=== PATIENT | female | born 1955 | race Caucasian/White ===

== ENCOUNTER → 2016-08-19 | Outpatient (CLI) | payer OTHER ==
[~2016-08-19] VITALS: Ht 170.2 cm; Wt 81.7 kg
[~2016-08-19] MED LIST: ADVAIR 250-501 EACH IH; ADVAIR 500-501 EACH PO; ADVIL MULTI-SY1 EAC1 PO; ALBUTEROL2.5 MG/0.5 INH; ALBUTEROL2.5 MG/0.5 PO; AUGMENTIN 875875 M1 PO; AUGMENTIN 875875 MG PO; BENZONATATE100 MG PO; CALCIUM 600 +1 EAC1 PO; CALTRATE 600 +1 EAC1 PO; CEFDINIR300 MG PO; CEFTIN 250 MG250 MG PO; CLARITIN10 MG PO; DIFLUCAN200 MG PO; ESTRACE CREAM TOP; FLONASE 0.05%50 MCG NASAL; FLONASE NS; HYDROCODON-ACE1 EAC5 PO; HYDROCODON-ACE1 EAC7 PO; IBUPROFEN 600600 M1 PO; IMITREX 25 MG T25 M1 PO; IMITREX OR; LEVAQUIN 500 M500 M2 PO; LIDOCAIN TOP; LOPERAMIDE 2 MG2 M1 PO; LORTAB OR; LYRICA 50 MG50 MG PO; LYRICA PO; LYRICA100 MG PO; MEDROL DOSPAK21 TAB PO; MELOXICAM7.5 MG PO; MUCINEX TA600 MG/TA2 PO; MUCINEX600 MG PO; NORCO 10-325 T1 EACH PO; NORTRIPTYLINE H10 M1 PO; NORTRIPTYLINE H25 M3 OR; NORTRIPTYLINE H25 M3 PO; NORTRIPTYLINE H50 M3 PO; PERCOCET 5-3251 EACH PO; PREDNISONE 10 M10 M1 PO; PREDNISONE 10 M10 MG PO; PREDNISONE 20 M20 M1 PO; PREDNISONE 20 M20 MG PO; PREDNISONE 5 MG5 M1 PO; SINGULAIR 10 MG10 M1 PO; SPIRIVA INH; SPIRIVA PO; VENTOLIN HFA 1818 GM PO; VENTOLIN HFA INH8 GM PO
--- NOTE | ~2016-08-19 | HPC ---
[facility] [place] [address] PAIN MANAGEMENT CONSULTATION Name: BEATA PELLETIER Room #: REG KYM Peter.#: [id number] Admission: 08/19/16 Attend Phys: Kvng Badillo MD Discharge: Date of : 51 Report #: [id number] THIS REPORT FOR: //name// CC: Chuy Badillo DATE OF SERVICE: 08/19/2016 Followup visit for chronic pudendal neuralgia. The patient is here today for renewal of her pain medication. 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 Dr. Santana suggested that she see someone to discuss her generalized arthritis. She complains of her chronic pain in the peroneal area. She has neuralgia that we have treated for years successfully with small doses of hydrocodone in combination with Lyrica or gabapentin and ibuprofen. We reviewed all three of these medications today. We discussed the side effects of them all and we have also spent some time discussing the opioid crisis in the [place]. I have talked about the importance of safeguarding all medications and using medications as prescribed. In the many years that I have provided medication for the patient successfully helping manage her pain, there have been no concerns regarding her use of opioid medication. I noted that her opioid agreement was signed in our clinic on 11/25/2005; it has now been over 10 years. She scores her pain as a 4/10, burning with soreness and achiness. It is exacerbated by walking, riding a bike and any sort of stimulation. The patient reports 95% improvement in her pain with her medication management and very manageable side effects. PHYSICAL EXAMINATION: VITAL SIGNS: Blood pressure 124/74, heart rate 74. BMI 28.2. EXTREMITIES: Moves from sitting to standing position, ambulates without difficulty. I did not examine her more thoroughly today. IMPRESSION: 1. Chronic pudendal neuralgia/peroneal neuralgia. 2. Management of high-risk medication. 3. Bilateral hip pain and knee pain. Rheumatoid consult suggested with Dr. Kwaku Da Silva, Dr. Antonietta Neil or . I did contact Dr. Kwaku Da Silva and I provided the patient with his number in the [place] office. 4. 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 PLAN: 1. Renewal of all medications through our clinic under terms of our agreement. [address] [address] PAIN MANAGEMENT CONSULTATION Name: BEATA PELLETIER Room #: REG CLI [facility]#: [id number] Admission: 08/19/16 Attend Phys: Kvng Badillo MD Discharge: Date of : 51 Report #: [id number] 2. Discussion regarding CDC guidelines. 3. Follow up in 3 months. By: 1249 1602 Kvng Badillo MD /nt
[2016-08-19 14:42] VITALS: BP 124/74
== END | disposition home or self-care (01) ==
LOC: PAIN 06-10 07:12
DX: G58.8 Other specified mononeuropathies (principal); G89.29 Other chronic pain; M25.561 Pain in right knee; M25.562 Pain in left knee; M25.551 Pain in right hip; M25.552 Pain in left hip; Z85.44 Personal history of malignant neoplasm of other female genital organs; Z87.891 Personal history of nicotine dependence

== ENCOUNTER → 2016-09-30 | Outpatient (CLI) | payer OTHER | LOC: ULTRA 16:12 | DX: I82.402 Acute embolism and thrombosis of unspecified deep veins of left lower extremity (principal); M79.89 Other specified soft tissue disorders; R60.9 Edema, unspecified ==

== ENCOUNTER → 2017-03-07 | Outpatient (CLI) | payer OTHER | LOC: RAD 12:51 | DX: M79.605 Pain in left leg (principal); R05 Cough ==

== ENCOUNTER 2017-03-16 14:13 | Observation (INO) | payer OTHER ==
[~2017-03-16] VITALS: Ht 170.2 cm; Wt 86.2 kg
--- NOTE | ~2017-03-16 | HC ---
[facility] [place] [address] CONSULTATION Name: BEATA PELLETIER Room #: 364-P DALIA Hernandez#: [id number] Admission: 03/16/17 Attend Phys: Jed Blanton DO Discharge: 03/17/17 Date of : 51 Report #: [id number] THIS REPORT FOR: //name// CC: Jed Connelly DATE OF SERVICE: 03/17/2017 REASON FOR CONSULTATION: Asthma. IMPRESSION: 1. History of asthma. 2. Peripheral edema. 3. Chest tightness. 4. Hypertension. 5. History of pulmonary embolism in 1995. 6. Chronic pain with stimulator. 7. History of Bartholin gland cancer with radiation. 8. Snoring. PLAN: 1. After review, I believe this could be secondary to diastolic dysfunction, question if there is a component of pulmonary hypertension at some point may need right heart catheterization, may need further evaluation regarding venous insufficiency, further evaluation regarding hypertension. 2. Would consider a sleep study to follow up with Dr. Mendez in office. 3. Possible evaluation regarding adrenal insufficiency. HISTORY OF PRESENT ILLNESS: A 61-year-old female has been having trouble with peripheral edema since the end of December and some progressive shortness breath, also earlier this month had pneumonia, which was treated and chest x-ray has improved. CT shows patchy areas of subpleural linear infiltrate, no consolidating pneumonia. We reviewed this with her. She had a recent left heart catheterization. She complained of chest pressure. No definite chest pain. Positive orthopnea. PAST MEDICAL HISTORY: ALLERGIES: TO REGLAN, COMPAZINE, PHENERGAN, GENTAMICIN, NAPROXEN. HOME MEDICATIONS: Included loperamide, spironolactone, Qvar, Levaquin, Lasix, loratadine, Symbicort, Singulair, albuterol, Spiriva, Motrin. FAMILY HISTORY: Noncontributory; however, brother also has asthma treated with Xolair. PAST SURGICAL HISTORY: Include meniscus repair and pain pump. Modified [facility] [address] [place] [address] CONSULTATION Name: BEATA PELLEITER Room #: 364-P [facility] Brandon Hernandez#: [id number] Admission: 03/16/17 Attend Phys: Jed Blanton DO Discharge: 03/17/17 Date of : 51 Report #: [id number] vulvectomy and lymph node dissection, neuropathy in volar area, endometrial ablation. SOCIAL HISTORY: Negative tobacco. Occasional ETOH. Negative current tobacco. REVIEW OF SYSTEMS: Include pulmonary emboli, pneumonia, migraine, esophageal dilation, cough, shortness of breath. No hemoptysis. Positive asthma. Positive dyspnea on exertion, positive peripheral edema. PHYSICAL EXAMINATION: VITAL SIGNS: Temperature 98.9, pulse 82, respirations ____, BP 135/73. EYES: Negative icterus. NECK: Negative JVD. LUNGS: Clear. HEART: Regular. ABDOMEN: Bowel sounds present. EXTREMITIES: Showed positive edema. By: [id number] Cassandra Fuller MD /nt
--- NOTE | ~2017-03-16 | 2DMMODE ---
[facility] [address] [place] [address] 2 D/M-MODE ECHOCARDIOGRAM Name: BEATA PELLETIER Room #: 364-P ADM IN M.R.#: [id number] Admission: 03/16/17 Attend Phys: Jed Blanton, Discharge: Date of : 51 Date of Service: 03/17/17 1130 Report #: [id number] THIS REPORT FOR: //name// APPROVED REPORT Study performed: 03/17/2017 10:15:06 EXAM: Comprehensive 2D, Doppler, and color-flow Echocardiogram Patient Location: Echo lab Room #: 364 Status: routine BSA: 1.98 HR: 73 bpm BP: 140/73 mmHg Rhythm: NSR Other Information Study Quality: Good Indications Dyspnea Chest Pain 2D Dimensions RVDd: 32.59 mm LVEF(%): 72.82 (>50%) IVSd: 11.28 (7-11mm) LVOT Diam: 21.22 (18-24mm) LVDd: 42.40 mm PWd: 11.36 (7-11mm) Ascending Ao: 31.61 (22-36mm) LVDs: 24.78 (25-40mm) Aortic Root: 35.14 mm Saez's LVEF: 72.82 % Volumes Left Atrial Volume (Systole) Single Plane 4CH: 33.86 mL Single Plane 2CH: 41.77 mL LA ESV Index: 22.00 mL/m2 Aortic Valve AoV Peak Kentrell.: 1.62 m/s AO Peak Gr.: 10.44 mmHg LVOT Max P.91 mmHg LVOT Max V: 1.49 m/s JACOBO Vmax: 3.27 cm2 AI Vmax: 4.22 m/s AI Goodhue: 3.28 m/s2 AI PHT: 373.42 ms [facility] [place] [address] 2 D/M-MODE ECHOCARDIOGRAM Name: BEATA PELLETIER HUNG Room #: 364-P [facility] IN M.R.#: [id number] Admission: 03/16/17 Attend Phys: Jed Blanton, Discharge: Date of : 51 Date of Service: 03/17/17 1130 Report #: [id number] Mitral Valve E/A Ratio: 1.2 MV Decel. Time: 212.44 ms MV E Max Kentrell.: 0.99 m/s MV A Kentrell.: 0.85 m/s MV PHT: 61.61 ms Pulmonary Valve PV Peak Kentrell.: 0.88 m/s PV Peak Gr.: 3.09 mmHg Pulmonary Vein P Vein S: 0.72 m/s P Vein D: 0.40 m/s P Vein S/D Ratio: 1.80 Tricuspid Valve TR Peak Kentrell.: 2.37 m/s RAP Estimate: 5.00 mmHg TR Peak Gr.: 22.47 mmHg PA Pressure: 27.00 mmHg Left Ventricle The left ventricle is normal size. There is normal LV segmental wall motion. There is normal left ventricular wall thickness. Left ventricular systolic function is normal. LVEF is 60-65%. Moderate diastolic dysfunction is present (pseudonormal filling). Right Ventricle The right ventricle is normal size. The right ventricular systolic function is normal. Atria The left atrium size is normal. The right atrium size is normal. Aortic Valve The aortic valve is mildly sclerotic Mild aortic regurgitation. There is no aortic valvular stenosis. Mitral Valve The mitral valve is normal in structure. Trace mitral regurgitation. Tricuspid Valve The tricuspid valve is normal in structure. Trace tricuspid regurgitation. Estimated PAP is 27mmHg. [place] [address] 2 D/M-MODE ECHOCARDIOGRAM Name: BEATA PELLETIER Room #: 364-P [facility] IN ..#: [id number] Admission: 03/16/17 Attend Phys: Jed Blanton, Discharge: Date of : 51 Date of Service: 03/17/17 1130 Report #: [id number] Pulmonic Valve The pulmonary valve is normal in structure. Trace pulmonic regurgitation. Great Vessels The aortic root is normal in size. The ascending aorta is normal in size. IVC is normal in size and collapses >50% with inspiration. Pericardium There is no pericardial effusion. <Conclusion> Left ventricular systolic function is normal. There is normal LV segmental wall motion. LVEF 60-65%. The aortic valve is mildly sclerotic. Mild aortic regurgitation, no stenosis. The mitral valve is normal in structure. Trace mitral regurgitation. Pulmonary artery pressure of 27mm Hg There is no pericardial effusion. <ELECTRONICALLY SIGNED> By: Mario Pennington MD, FACC 03/17/17 1130 1130 113 Mario Pennington MD, FACC /INF
--- NOTE | ~2017-03-16 | EKG ---
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 : 1955 Requested By: Chuck Grier Order Number: [id number] MD: Mario Pennington Measurements Intervals [place] Rate: 83 P: -27 IN: 172 QRS: -8 QRSD: 79 T: 89 QT: 338 QTc: 398 Interpretive Statements Sinus rhythm Atrial premature complex Left ventricular hypertrophy Compared to ECG 06/24/2015 18:32:36 Atrial premature complex(es) now present Left ventricular hypertrophy now present Electronically Signed On 03-17-2017 9:05:48 CDT by Mario Pennington [email or web address] <ELECTRONICALLY SIGNED> By: Mario Pennington MD, [facility] 03/17/17 0905 1433 1433 Mario Pennington MD, [facility] /EPI
[~2017-03-16 14:13] MED LIST changes: -ALDACTONE25 MG PO; -COZAAR 50 MG TA50 M2 PO; -LASIX 40 MG TAB40 M2 PO; -LEVAQUIN 750 M750 MG PO; -POTASSIUM20 PO; -QVAR8.7 G1 INH
[2017-03-16 14:14] VITALS: BP 160/99
[2017-03-16] MEDS ORDERED: ALDACTONE25 MG PO (14:41)
[2017-03-16] MEDS ORDERED: QVAR8.7 G1 INH (14:42)
[2017-03-16] MEDS ORDERED: LASIX 40 MG TAB40 M2 PO (14:42)
[2017-03-16] MEDS ORDERED: LEVAQUIN 750 M750 MG PO (14:42)
[2017-03-16] MEDS ORDERED: POTASSIUM20 PO (14:43)
[2017-03-16 15:16] LABS: ABSOLUTE NEUTROPHILS 5.1 thou/uL (1.4-8.2); BASOPHILS 1.3 % (0.0-2.0); EOSINOPHILS 1.7 % (0.0-3.0); HEMATOCRIT 35.9 % (37.0-47.0); LYMPHOCYTES 39.5 % (24.0-44.0); MCH 30.3 pg (26.0-34.0); MCHC 33.5 g/dL (28.0-37.0); MCV 90.6 fL (80.0-100.0); MONOCYTES 6.8 % (1.0-8.0); PLATELET COUNT 298 thou/uL (150-400); POLYS 50.7 % (36.0-66.0); RBC 3.96 mil/uL (4.20-5.00); RDW 13.9 % (10.5-14.5); WBC 10.1 thou/uL (4.0-11.0)
[2017-03-16 15:17] LABS: MANUAL DIFF NO
[2017-03-16 15:38] LABS: ANION GAP 5 mmol/L (7-16); BUN 14 mg/dL (7-18); CALCIUM 9.3 mg/dL (8.5-10.1); CHLORIDE 105 mmol/L (98-107); CO2 28 mmol/L (21-32); CREATININE 0.8 mg/dL (0.6-1.0); GLUCOSE 98 mg/dL (74-106); POTASSIUM 4.4 mmol/L (3.5-5.1); SODIUM 138 mmol/L (136-145); TROPONIN-I < 0.04 ng/mL (<0.04-0.07)
[2017-03-16 18:25] VITALS: BP 137/84
[2017-03-16 18:40] VITALS: BP 136/73
[2017-03-16 19:55] VITALS: BP 148/86
[2017-03-16 23:57] VITALS: BP 146/81
[2017-03-17 04:21] VITALS: BP 140/73
[2017-03-17 06:21] LABS: ABSOLUTE NEUTROPHILS 3.4 thou/uL (1.4-8.2); BASOPHILS 0.8 % (0.0-2.0); EOSINOPHILS 2.4 % (0.0-3.0); HEMATOCRIT 34.1 % (37.0-47.0); HEMOGLOBIN 11.7 gm/dL (12.0-15.0); LYMPHOCYTES 48.3 % (24.0-44.0); MCH 30.8 pg (26.0-34.0); MCHC 34.3 g/dL (28.0-37.0); MCV 89.6 fL (80.0-100.0); MONOCYTES 7.3 % (1.0-8.0); PLATELET COUNT 244 thou/uL (150-400); POLYS 41.2 % (36.0-66.0); RBC 3.81 mil/uL (4.20-5.00); RDW 13.7 % (10.5-14.5); WBC 8.2 thou/uL (4.0-11.0)
[2017-03-17 06:24] LABS: MANUAL DIFF NO
[2017-03-17 06:31] LABS: CREATININE 0.6 mg/dL (0.6-1.0); POTASSIUM 3.6 mmol/L (3.5-5.1)
[2017-03-17 08:56] LABS: CHOLESTEROL 163 mg/dL (<200); HDL CHOLESTEROL 58 mg/dL (>40); LDL CHOLESTEROL 85 mg/dL (<100); TC:HDL 2.8 Ratio (Not establshd); TRIGLYCERIDE 102 mg/dL (<150); VLDL 20 mg/dL (<40)
[2017-03-17] MEDS ORDERED: COZAAR 50 MG TA50 M2 PO (16:47)
[2017-03-17 16:48] VITALS: BP 135/73
[2017-03-17 17:01] VITALS: BP 135/73
== END 2017-03-17 17:45 | disposition home or self-care (01) ==
LOC: ER 14:13 → 3W 17:50 → EROBS 17:50 → 3W 18:52
PROVIDERS: Emergency Medicine; Family Medicine; Nurse Practitioner Adult Health
DX: R07.9 Chest pain, unspecified (principal); R60.9 Edema, unspecified; J45.909 Unspecified asthma, uncomplicated; G89.29 Other chronic pain; R06.83 Snoring; F41.9 Anxiety disorder, unspecified; Z85.89 Personal history of malignant neoplasm of other organs and systems; Z92.3 Personal history of irradiation; Z86.711 Personal history of pulmonary embolism

== ENCOUNTER → 2017-03-16 | Outpatient (CLI) | payer OTHER ==
[~2017-03-16] MED LIST changes: +ALDACTONE25 MG PO; +COZAAR 50 MG TA50 M2 PO; +LASIX 40 MG TAB40 M2 PO; +LEVAQUIN 750 M750 MG PO; +POTASSIUM20 PO; +QVAR8.7 G1 INH
== END ==
LOC: RAD 11:54
DX: J18.9 Pneumonia, unspecified organism (principal)

== ENCOUNTER → 2017-07-21 | Outpatient (CLI) | payer OTHER ==
[~2017-07-21] VITALS: Ht 170.2 cm; Wt 86.6 kg
[~2017-07-21] MED LIST changes: +ALDACTONE25 MG PO; +ASPIR 8181 MG PO; +COZAAR 50 MG TA50 M2 PO; +DEMADEX20 MG PO; +LASIX 40 MG TAB40 M2 PO; +LEVAQUIN 750 M750 MG PO; +LOSARTAN POTASS50 MG PO; +POTASSIUM20 PO; +PRAVACHOL20 MG PO; +QVAR8.7 G1 INH; +SYMBICORT160 MCG/4. INH; +TUMERIC PO
--- NOTE | ~2017-07-21 | HPC ---
[facility] [place] [address] PAIN MANAGEMENT CONSULTATION Name: BEATA PELLETIER Room #: REG [facility].#: [id number] Admission: 07/21/17 Attend Phys: Kvng Badillo MD Discharge: Date of : 51 Report #: [id number] THIS REPORT FOR: //name// CC: MARAL Badillo DATE OF SERVICE: 07/21/2017 Followup visit for chronic intractable pain. The patient is here today for a short followup visit. She was last seen on 04/14/2017. 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 She is looking forward to a vacation next week. She has done pretty well over the course of the last 3 months after her hospitalization for respiratory issues and diastolic heart failure. She continues on hydrocodone, nortriptyline, Motrin and Lyrica provided for her through our clinic. All side effects of medication have been reviewed in detail in the past. There have been no changes recommended today. She reports that her pudendal neuralgia score is about 4/10. This is a tolerable level for her, which allows her to work. At times, it has been a bit lower. Medication clearly helps reduce the intensity of her pain. MEDICATIONS: Provided nortriptyline 50 mg at bedtime, Lyrica 100 mg at bedtime, ibuprofen 600 mg as needed t.i.d. and hydrocodone 10/325 1 tablet q. 6 hours averaging 4 tablets a day. This is a morphine milligram equivalent of 40. We discussed the CDC guidelines. She understands the importance of safeguarding medication. She denies any significant opioid side effects. IMPRESSION: 1. Chronic pudendal neuralgia. 2. Management of high risk medication. 3. History of diastolic heart failure. 4. History of vulvar cancer, stage II, diagnosed since year 1999. PLAN: I renewed all her medications under terms of our opioid agreement. I plan to see her back in the pain clinic in 3 months. <ELECTRONICALLY SIGNED> By: Kvng Badillo MD 07/27/17 1640 1514 04 Kvng Badillo MD /nt
[2017-07-21 14:12] VITALS: BP 134/75
== END ==
LOC: PAIN 07-18 15:18
DX: G58.8 Other specified mononeuropathies (principal); I50.30 Unspecified diastolic (congestive) heart failure; Z79.899 Other long term (current) drug therapy; Z85.44 Personal history of malignant neoplasm of other female genital organs

== ENCOUNTER → 2017-11-07 | Outpatient (CLI) | payer OTHER ==
[~2017-11-07] VITALS: Ht 170.2 cm; Wt 84.8 kg
[~2017-11-07] MED LIST changes: -LOSARTAN POTASS50 MG PO; -PRAVACHOL20 MG PO; -SYMBICORT160 MCG/4. INH; +TUMERIC; -TUMERIC PO
--- NOTE | ~2017-11-07 | HPC ---
[facility] [place] [address] PAIN MANAGEMENT CONSULTATION Name: BEATA PELLETIER Room #: REG [facility] EvinDarlene.#: [id number] Admission: 11/07/17 Attend Phys: Kvng Badillo MD Discharge: Date of : 51 Report #: [id number] THIS REPORT FOR: //name// CC: Chuy Badillo DATE OF SERVICE: 11/07/2017 Followup visit for pudendal neuralgia. The patient has been a longstanding patient in the clinic who is here today for renewal of medication. We have been treating her pain with a reasonable effectiveness with a combination of medications over the course of the last 10 years or so. There have been no changes in her medical conditions. She is doing well, continuing to work about 30 hours per week. Some of that is being provided without reimbursement. We discussed that today. She should be reimbursed for all the hours that she is putting in. She would like to back off a little bit if she can. She has been working despite her chronic pain and should continue to make efforts to pace herself, so that she can meet her own individual and personal goals as well. She plans to take a trip this summer and getting again later in the fall. Medication allows her to both work and enjoy pleasurable activities. Her medications cover a number of pain pathways and have been effective. Side effects have been manageable. We discussed the medications, risks as well as proper use of the medications at today's visit as before and I have also reviewed with her the CDC guidelines in our opioid agreement. MEDICATIONS: Provided to the clinic, nortriptyline 50 mg at bedtime, ibuprofen 600 mg p.r.n. up to 3 times a day, Lyrica 100 mg at bedtime and hydrocodone 10/325 four times daily p.r.n. for pudendal neuralgia pain. PHYSICAL EXAMINATION: She is pleasant, alert and oriented. She is working today. She is wearing her badge. Her blood pressure 118/65, heart rate 78. BMI 29.3. She complains of pain a bit into the left leg today, but most of the pain is in the perineal area, which is persistent and chronic described as soreness. Exam was deferred. IMPRESSION: 1. Chronic pudendal neuralgia. 2. Management of high risk medication polypharmacy regimen under terms of written agreement. 3. History of vulvar cancer, stage II diagnosed year 1999, now in remission. 4. History of diastolic heart failure. [address] [address] PAIN MANAGEMENT CONSULTATION Name: BEATA PELLETIER [id number] Admission: 11/07/17 Attend Phys: Kvng Badillo MD Discharge: Date of : 51 Report #: [id number] PLAN: I have recommended that she show good and cautious use of her ibuprofen as before due to the GI, renal and cardiac side effects. She will safeguard her hydrocodone carefully and take as described in her agreement. Followup is planned for 3 months. By: 1230 06 Kvng Badillo MD /nt
[2017-11-07 09:35] VITALS: BP 119/65
== END ==
LOC: PAIN 06:58
DX: G89.29 Other chronic pain (principal); M79.605 Pain in left leg; G58.8 Other specified mononeuropathies; Z79.899 Other long term (current) drug therapy; F11.90 Opioid use, unspecified, uncomplicated; Z87.891 Personal history of nicotine dependence

== ENCOUNTER → 2018-03-08 | Outpatient (CLI) | payer OTHER ==
[~2018-03-08] VITALS: Ht 170.2 cm; Wt 84.8 kg
--- NOTE | ~2018-03-08 | HPC ---
[facility] [place] [address] PAIN MANAGEMENT CONSULTATION Name: BEATA PELLETIER Room #: REG YISELRitesh Green.#: [id number] Admission: 03/08/18 Attend Phys: Kvng Badillo MD Discharge: Date of : 51 Report #: [id number] THIS REPORT FOR: //name// CC: MARAL Badillo DATE OF SERVICE: 03/08/2018 Followup visit for chronic intractable pain. The patient is seen today for her pudendal neuralgia. She reports continuing effectiveness of medication combination. She is on a nonsteroidal anti-inflammatory drug, ibuprofen 600 mg q. 6 hours p.r.n., nortriptyline 50 mg at bedtime for neuropathic pain, Lyrica 100 mg at bedtime for same, hydrocodone 10/325 four times daily. She finds it very effective to help her get through her day. She has been quite a long time developed some tolerance to its effect, but the pain relieving effects remain quite beneficial. Dr. Gonzalez placed a stimulator for her several years ago, which continues to be effective. The [employer] pulse generator now is in need of replacement. I have raised the possibility of asking Dr. Dewey Mast to replace the pulse generator here at [facility] where she would like to have it done. I contacted him, but actually he was agreeable. I sent the information on the patient later in the day. There are no significant side effects with the current medication. She safeguards her medications carefully. We reviewed the opioid crisis many times. We reviewed the importance of safeguarding all medications. We talked about the pros and cons of all medications including nonsteroidal anti-inflammatory drugs, which have their own set of complications of the wrist. She will continue use of medications carefully under direction. We will plan to see her at intervals necessary to oversee the medication carefully. Her morphine milligram equivalency is 40 per day. IMPRESSION: 1. Chronic pudendal neuralgia. 2. Management of high risk medication polypharmacy under terms of written opioid agreement. 3. History of vulvar cancer, stage II diagnosed in year 1999, in remission. 4. Diastolic heart failure. The treatment of this condition has made a difference in her daily fatigue. [address] [address] PAIN MANAGEMENT CONSULTATION Name: BEATA PELLETIER Room #: REG [facility].#: [id number] Admission: 03/08/18 Attend Phys: Kvng Badillo MD Discharge: Date of : 51 Report #: [id number] PLAN: I renewed her hydrocodone, Lyrica, nortriptyline, ibuprofen with a followup visit scheduled in 3 months. By: 1753 0441 Kvng Badillo MD /nt
[2018-03-08 14:20] VITALS: BP 121/71
== END ==
LOC: PAIN 06:56
DX: G89.4 Chronic pain syndrome (principal); G58.8 Other specified mononeuropathies; I50.30 Unspecified diastolic (congestive) heart failure; Z85.44 Personal history of malignant neoplasm of other female genital organs; Z79.891 Long term (current) use of opiate analgesic

== ENCOUNTER → 2018-03-27 | Outpatient (CLI) | payer OTHER ==
[~2018-03-27] VITALS: Ht 170.2 cm; Wt 83.0 kg
[~2018-03-27] MED LIST changes: +LOSARTAN POTASS50 MG PO; +PRAVACHOL20 MG PO; +SYMBICORT160 MCG/4. INH; -TUMERIC; +TUMERIC PO
== END | disposition home or self-care (01) ==
LOC: GI 12:53
DX: Z12.11 Encounter for screening for malignant neoplasm of colon (principal); Z80.0 Family history of malignant neoplasm of digestive organs; Z86.010 Personal history of colon polyps; K57.30 Diverticulosis of large intestine without perforation or abscess without bleeding; K64.8 Other hemorrhoids; I10 Essential (primary) hypertension; E78.00 Pure hypercholesterolemia, unspecified; I48.91 Unspecified atrial fibrillation; G43.909 Migraine, unspecified, not intractable, without status migrainosus; Z86.711 Personal history of pulmonary embolism; Z87.19 Personal history of other diseases of the digestive system; Z79.01 Long term (current) use of anticoagulants; Z98.890 Other specified postprocedural states; Z79.899 Other long term (current) drug therapy; Z88.8 Allergy status to other drugs, medicaments and biological substances

== ENCOUNTER → 2018-04-24 | Outpatient (CLI) | payer OTHER ==
[~2018-04-24] VITALS: Ht 170.2 cm; Wt 83.0 kg
--- NOTE | ~2018-04-24 | PATH ---
[facility] [place] [address] PATHOLOGY RPT PROCEDURE Name: BEATA PELLETIER Room #: REG YISELRitesh Green.#: [id number] Admission: 04/24/18 Date of : 51 Discharge: Report #: [id number] Path Case #: [id number] [facility] Accession Number: [id number] . 01 Material submitted: . PART A: BX OF GASTRITIS R/O H. PYLORI PART B: BX OF DISTAL ESOPHAGUS R/O EOE PART C: BX OF MID ESOPHAGUS R/O EOE . 01 Clinical history: . Pre-OP DX: Dysphagia Post-OP DX: Schatzki's ring, gastritis, esophagitis, dysphagia . 02 Diagnosis: A. Gastric mucosa, gastritis, rule out H. pylori, endoscopic biopsy: - Mild reactive gastropathy. - Negative for intestinal metaplasia or atrophy. - Negative for Helicobacter pylori (properly-controlled immunohistochemical stain performed). . B. Gastroesophageal mucosa, distal esophagus, endoscopic biopsy: - Focal specialized columnar epithelium (gastric fundic-type mucosa) with intestinal metaplasia, cannot exclude Valenzuela's mucosa (please see comment). - Adjacent squamous mucosa showing mild esophagitis. - Negative for dysplasia or malignancy. - No increase in intraepithelial eosinophils within the squamous mucosa. . C. Squamous mucosa, mid esophagus, endoscopic biopsy: - Mild esophagitis associated with a rare eosinophil (1/HPF). - Negative for intestinal metaplasia or dysplasia. . (IUV:mml; 04/25/18) [facility]/04/25/2018 . 02 Comment: The biopsy designated, "distal esophagus" shows gastric fundic-type mucosa with scattered goblet cells. The diagnosis in this case depends on the location of this biopsy. If this biopsy was taken from the tubular esophagus at least 1.0 cm above the gastric folds, it shows Valenzuela's mucosa. If this biopsy was taken from the gastric cardia, it shows intestinal metaplasia of the gastric cardia. Clinical correlation is suggested. . (IUV:mml; 04/25/18) . 02 Electronically signed: . [address] [address] PATHOLOGY RPT PROCEDURE Name: BEATA PELLETIER HUNG Room #: REG KYM Hernandez#: [id number] Admission: 04/24/18 Date of : 51 Discharge: Report #: [id number] Path Case #: [id number] Padmini Aguila MD, Pathologist NPI- [id number] . 01 Gross description: . A. Received in formalin labeled "Beata Pelletier, BX of gastritis, rule out H. pylori," is a single segment of doyle soft tissue measuring 0.3 cm in maximum dimension. The specimen is entirely submitted in cassette A1. . B. Received in formalin labeled "DameKirtiBeata, BX of distal esophagus," is a single segment of doyle soft tissue measuring 0.3 cm in maximum dimension. The specimen is entirely submitted in cassette B1. . C. Received in formalin labeled "Dame Beata, BX of mid esophagus," is a single segment of doyle soft tissue measuring 0.4 cm in maximum dimension. The specimen is entirely submitted in cassette C1. (TSD; 04/24/2018) TOB/TOB . 02 Pathologist provided ICD-10: K31.9, K22.8, K20.9 . 02 CPT . 492619, 539920, 645039, Q91219 Specimen Comment: A courtesy copy of this report has been sent to Specimen Comment: [phone], . Specimen Comment: Report sent to / DR LOPEZ Performed at: [address] [facility], [place], [place] [id number] MD Destin Millan MD Phone: [phone] Performed at: [address] [facility] [address] [id number] MD Padmini Aguila MD Phone: [phone]
== END | disposition home or self-care (01) ==
LOC: GI 11:41
DX: K31.9 Disease of stomach and duodenum, unspecified (principal); K22.2 Esophageal obstruction; K20.8 Other esophagitis; K44.9 Diaphragmatic hernia without obstruction or gangrene; K22.70 Barrett's esophagus without dysplasia; I11.0 Hypertensive heart disease with heart failure; I50.9 Heart failure, unspecified; I25.10 Atherosclerotic heart disease of native coronary artery without angina pectoris; I25.2 Old myocardial infarction; J45.909 Unspecified asthma, uncomplicated; G43.909 Migraine, unspecified, not intractable, without status migrainosus; K21.9 Gastro-esophageal reflux disease without esophagitis; I48.91 Unspecified atrial fibrillation; Z85.44 Personal history of malignant neoplasm of other female genital organs; Z87.891 Personal history of nicotine dependence; Z86.718 Personal history of other venous thrombosis and embolism; Z86.711 Personal history of pulmonary embolism; Z79.01 Long term (current) use of anticoagulants; Z86.010 Personal history of colon polyps; Z87.19 Personal history of other diseases of the digestive system; Z88.8 Allergy status to other drugs, medicaments and biological substances; Z98.890 Other specified postprocedural states; Z80.1 Family history of malignant neoplasm of trachea, bronchus and lung; Z80.42 Family history of malignant neoplasm of prostate; Z79.82 Long term (current) use of aspirin; Z79.899 Other long term (current) drug therapy
CPT/HCPCS: 62110; 62900

== ENCOUNTER → 2018-08-17 | Outpatient (CLI) | payer OTHER ==
[~2018-08-17] VITALS: Ht 170.2 cm; Wt 85.3 kg
[2018-08-17 10:21] VITALS: BP 106/61
--- NOTE | 2018-08-17 10:32 | NUR ---
Pain Clinic Assessment: 1. History of Osteoarthritis: KNEE HIPS History of Rheumatoid Arthritis: NO 2. Height: 5 ft. 7 in. 170.2 cm. Weight: 188.0 lb. oz. 85.276 kg. Patient's BMI: 29.4 3. Vital Signs: BP: 106/61 Pulse: 92 Resp: 14 Temp: 02 Sat: 100 ECG Mon: 4. Pain Intensity: 2 5. Fall Risk: Dizziness: N Needs help standing or walking: N Fallen in the last 3 months: N Fall risk comments: 6. Patient on Blood Thinner: None 7. History of Hypertension: N 8. Opioid Therapy greater than 6 weeks: Y Opiate Contract Signed: 11/25/05 9. Risk Assessment Tool Provided: LOW 0/3 10. Functional Assessment Tool: 11. Recreational Drug Use: Never Drug Type: Tobacco Use: Former Smoker Tobacco Type: Amount or Packs/day: How Many Years: Alcohol Use: Yes Frequency: Weekly Quant:
--- NOTE | 2018-08-23 15:29 | HPC ---
[facility] [place] [address] PAIN MANAGEMENT CONSULTATION Name: BEATA PELLETIER Room #: REG [facility].#: [id number] Admission: 08/17/18 ������������������ Attend Phys: Kvng Badillo MD Discharge: ������������������ Date of : 51 Report #: [id number] THIS REPORT FOR: //name// CC: MARAL Badillo DATE OF SERVICE: 08/17/2018 Followup visit for chronic pudendal neuralgia. The patient returns to pain clinic today for a 15-20 minute consultation. She continues to work 3 days a week at her job at [employer]. She interacts with multiple people every day. At the end of the day, she comes home and she is tired. This has created some stress due to her end of the day fatigue. She and her are working on trying to make the end of the day better. Medication continues to provide an important role in alleviating pain and allowing her to get through her day. She denies any significant side effects and the medication is grateful for the relief that it does provide. She has previously been taking hydrocodone 10/325 up to 4 times a day and I provided with prescriptions for release at 4 and 8 weeks. She denies side effects. She understands there is an opioid crisis and she carefully safeguards her medication. Co-analgesics include nortriptyline 50 mg at bedtime and Lyrica 100 mg at bedtime. This does help with the intensity of the neuropathic pain. PHYSICAL EXAMINATION: GENERAL: Today on physical exam, she is pleasant, seems a bit tired and I think it is just chronic pain and the difficulty of dealing with multiple people every day at work plus the stressors ongoing when she comes home and tries to carry on there. VITAL SIGNS: Her blood pressure is 106/61, heart rate is 92, respirations 14. Pain intensity is rated at 4. EXTREMITIES: The pain is described as primarily within the groin and the perineal region. There is some radiating pain into the left leg. She also has pain in the right knee and both hips related to arthropathy. Qualities include soreness and burning. IMPRESSION: 1. Chronic pudendal neuralgia. 2. Osteoarthritis. 3. History of vulvar cancer, stage II, diagnosed nearly 20 years ago, in remission. [address] [address] PAIN MANAGEMENT CONSULTATION Name: BEATA PELLETIER [id number] Admission: 08/17/18 ������������������ Attend Phys: Kvng Badillo MD Discharge: ������������������ Date of : 51 Report #: [id number] 4. Diastolic heart failure, under treatment. 5. Asthma. 6. Hypertension. PLAN: I renewed her medications under terms of an opioid agreement. I spent some time discussing some possible relaxation strategies and have suggested Dr. Nav Lee book, [facility] Guide to Stress Relieving, has a number of helpful strategies that I think might be of value. Followup visit in 3 months. ��������������������������������������������� <ELECTRONICALLY SIGNED> ���������������������������������������� By: Kvng Badillo MD ��������������������������������������������� 08/23/18 1529 [id number] [id number] Kvng Badillo MD /nt
== END ==
LOC: PAIN 06:45
DX: M79.2 Neuralgia and neuritis, unspecified (principal); G89.29 Other chronic pain; M19.90 Unspecified osteoarthritis, unspecified site; J45.909 Unspecified asthma, uncomplicated; I10 Essential (primary) hypertension; I50.9 Heart failure, unspecified; Z85.44 Personal history of malignant neoplasm of other female genital organs

== ENCOUNTER → 2018-09-14 | Outpatient (CLI) | payer OTHER | LOC: ULTRA 09:27 | DX: M79.661 Pain in right lower leg (principal); M79.89 Other specified soft tissue disorders; Z88.8 Allergy status to other drugs, medicaments and biological substances; Z88.1 Allergy status to other antibiotic agents ==

== ENCOUNTER → 2018-11-13 | Outpatient (CLI) | payer OTHER ==
[~2018-11-13] VITALS: Ht 170.2 cm; Wt 88.0 kg
[~2018-11-13] MED LIST changes: +HYSINGLA ER40 MG PO
--- NOTE | ~2018-11-13 | HPC ---
[facility] [address] [address] PAIN MANAGEMENT CONSULTATION Name: BEATA PELLETIER Room #: REG [facility] M.R.#: [id number] Admission: 11/13/18 ������������������ Attend Phys: Kvng Badillo MD Discharge: ������������������ Date of : 51 Report #: [id number] THIS REPORT FOR: //name// CC: Chuy Badillo DATE OF SERVICE: 11/13/2018 Followup visit for pudendal neuralgia. The patient returns to the clinic today and her is with her. She brought her because they are finding it challenging to deal with chronic pain towards the end of the day. She often becomes tired and short and her pain medication is inadequate to handle all of the pain that she is dealing with. This has affected the patient, which has then concerned her , who is here today to discuss further options. She has been on Lyrica 100 mg at bedtime, but did not take any daytime dose. She takes nortriptyline 50 mg at bedtime. She has hydrocodone 10/325, which provides good relief for about 4-6 hours, but there is no question that when the medication wears off, her pain returns, generally with some speed and if she lets to go too long, it worsens dramatically and she needs to play catch up often times at this point, when she is most edgy. She has used some anti-inflammatory drugs with mixed success. She has a sacral stimulator placed by Dr. Gonzalez for some fecal incontinence. She does not have any other implantable devices. It has been a number of years since we have done any injections. A caudal injection has been tried in probably a decade or so. IMPRESSION: 1. Pudendal neuralgia. 2. Medication management, chronic intractable pain. RECOMMENDATIONS: I am trying to increase the Lyrica to 100 mg at bedtime and then an additional 50 mg in the morning and midday. Having some blood level, the neuropathic pain medication may provide better relief of pain. She will have to watch for side effects and if these are intolerable, then I have told her she does not need to force it past at least a trial of initiation therapy. We have had good success for some patients who have been suffering through the peaks and valleys of hydrocodone, but find it otherwise effective by transitioning them to a long-acting formulation. I have had excellent success [address] [address] PAIN MANAGEMENT CONSULTATION Name: BEATA PELLETIER Room #: REG CLI Mary#: [id number] Admission: 11/13/18 ������������������ Attend Phys: Kvng Badillo MD Discharge: ������������������ Date of : 51 Report #: [id number] with Hysingla in this setting and I have recommended a trial of Hysingla for the patient at the exact same milligram dose that she is on currently, 40 mg per day. A new prescription will be provided and we will see if there are preauthorization requirements. It has been my experience that for the right patient this is an excellent medication. The patient works full-time still and is grateful for the pain relief that she receives from the medication. It clearly is an important medication for helping her achieve her day-to-day activities. She denies side effects from hydrocodone and carefully safeguards her medication. This would lessen the number of pills available. All new prescriptions were written and she was provided with some samples for 50 mg Lyrica. I plan to follow up with her by phone here in the hospital over the course of the next month. Other options would include the possibility of opioid or other medication rotation. I do think that she is opioid responsive and these medications have been very valuable to her in treatment over the years. ��������������������������������������������� ���������������������������������������� By: ��������������������������������������������� [id number] [id number] Kvng Badillo MD /nt
[2018-11-13 14:08] VITALS: BP 126/80
--- NOTE | 2018-11-13 14:35 | NUR ---
Pain Clinic Assessment: 1. History of Osteoarthritis: KNEE HIPS History of Rheumatoid Arthritis: NO 2. Height: 5 ft. 7 in. 170.2 cm. Weight: 194.0 lb. oz. 87.998 kg. Patient's BMI: 30.4 3. Vital Signs: BP: 126/80 Pulse: 90 Resp: 16 Temp: 02 Sat: 97 ECG Mon: 4. Pain Intensity: 3 5. Fall Risk: Dizziness: N Needs help standing or walking: N Fallen in the last 3 months: N Fall risk comments: 6. Patient on Blood Thinner: None 7. History of Hypertension: N 8. Opioid Therapy greater than 6 weeks: Y Opiate Contract Signed: 11/25/05 9. Risk Assessment Tool Provided: LOW 0/3 10. Functional Assessment Tool: 11. Recreational Drug Use: Never Drug Type: Tobacco Use: Former Smoker Tobacco Type: Amount or Packs/day: How Many Years: Alcohol Use: Yes Frequency: Monthly Quant: 1
== END ==
LOC: PAIN 06:59
DX: M79.2 Neuralgia and neuritis, unspecified (principal); G89.4 Chronic pain syndrome; Z79.899 Other long term (current) drug therapy

== ENCOUNTER → 2019-01-01 | Outpatient (CLI) | payer OTHER ==
[~2019-01-01] VITALS: Ht 170.2 cm; Wt 77.2 kg
[~2019-01-01] MED LIST changes: +OXYMORPHONE HC7.5 MG PO; +OXYMORPHONE HCL15 MG PO
--- NOTE | ~2019-01-01 | HPC ---
[facility] [place] [address] PAIN MANAGEMENT CONSULTATION Name: BEATA PELLETIER Room #: REG [facility]#: [id number] Admission: 01/01/19 ������������������ Attend Phys: Kvng Badillo MD Discharge: ������������������ Date of : 51 Report #: [id number] THIS REPORT FOR: //name// CC: Chuy Badillo DATE OF SERVICE: 01/01/2019 Followup visit for medication management and the treatment of chronic pudendal neuralgia. The patient returns to pain clinic today with her . We have transitioned her to oxymorphone and at a dose of 15 mg b.i.d., she has had some of the best pain relief that she has received in years. She denies any significant side effects from the medication. Her has noted, however, that she is having some night terrors. She does not notice these. She cries out in her sleep and goes back to sleep. She feels that she is well rested. In addition to the oxymorphone, she has been taking nortriptyline 50 mg at bedtime and Lyrica 100 mg twice daily. This has been increased from her prior dose. It could be that this is related to her nocturnal events as well. Medication combination, however, seems to be working effectively and we will continue her on it. PHYSICAL EXAMINATION: GENERAL: Pleasant, alert and oriented. VITAL SIGNS: Her blood pressure is 107/67, heart rate 90, respirations 16, O2 sat 97. BMI is 26.7. She walks with an antalgic gait. PELVIC: Deferred. IMPRESSION: 1. Chronic pudendal neuralgia. 2. Osteoarthritis. 3. History of vulvar cancer, stage II, diagnosed nearly 20 years ago, in remission. 4. Diastolic/systolic heart failure, under treatment. 5. Asthma. 6. Hypertension. 7. Management of high risk medications under terms of written opioid agreement. PLAN: We will continue her on the oxymorphone 15 mg b.i.d. This equates to a total daily dose of 30 mg and by the established criteria for MME, which is 3:1, her MME would be 90. This bothers her a bit, because of this significant jump in her MME, but the pain relief is really quite good. I would like to continue her at this dose for the moment. We will continue [place] [address] PAIN MANAGEMENT CONSULTATION Name: BEATA PELLETIER [id number] Admission: 01/01/19 ������������������ Attend Phys: Kvng Badillo MD Discharge: ������������������ Date of : 51 Report #: [id number] understands the importance of safeguarding the medications. We will use function as an important guide to our prescribing. Long-term concerns of opioid use have been addressed frequently dating back 15 years or so. 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 Followup visit is planned in 3 months. Prescriptions were written for dated release. ��������������������������������������������� ���������������������������������������� By: ��������������������������������������������� 1804 0014 Kvng Badillo MD /nt
[2019-01-01 15:42] VITALS: BP 107/67
--- NOTE | 2019-01-01 15:44 | NUR ---
Pain Clinic Assessment: 1. History of Osteoarthritis: KNEE HIPS History of Rheumatoid Arthritis: NO 2. Height: 5 ft. 7 in. 170.2 cm. Weight: 170.2 lb. oz. 77.202 kg. Patient's BMI: 26.7 3. Vital Signs: BP: 107/67 Pulse: 90 Resp: 16 Temp: 02 Sat: 97 ECG Mon: 4. Pain Intensity: 4 5. Fall Risk: Dizziness: N Needs help standing or walking: N Fallen in the last 3 months: N Fall risk comments: 6. Patient on Blood Thinner: None 7. History of Hypertension: N 8. Opioid Therapy greater than 6 weeks: Y Opiate Contract Signed: 11/25/05 9. Risk Assessment Tool Provided: LOW 0/3 10. Functional Assessment Tool: 11. Recreational Drug Use: Never Drug Type: Tobacco Use: Former Smoker Tobacco Type: Amount or Packs/day: How Many Years: Alcohol Use: Yes Frequency: Quant:
== END ==
LOC: PAIN 07:02
DX: M79.2 Neuralgia and neuritis, unspecified (principal); M19.90 Unspecified osteoarthritis, unspecified site; J45.909 Unspecified asthma, uncomplicated; I11.0 Hypertensive heart disease with heart failure; I50.40 Unspecified combined systolic (congestive) and diastolic (congestive) heart failure; Z79.891 Long term (current) use of opiate analgesic; Z85.44 Personal history of malignant neoplasm of other female genital organs

== ENCOUNTER → 2019-01-04 | Outpatient (CLI) | payer OTHER ==
--- NOTE | 2019-01-04 13:11 | NUR ---
Pain Clinic Assessment: 1. History of Osteoarthritis: KNEE HIPS History of Rheumatoid Arthritis: NO 2. Height: ft. in. cm. Weight: lb. oz. kg. Patient's BMI: 3. Vital Signs: BP: Pulse: Resp: Temp: 02 Sat: ECG Mon: 4. Pain Intensity: 4 5. Fall Risk: Dizziness: N Needs help standing or walking: N Fallen in the last 3 months: N Fall risk comments: 6. Patient on Blood Thinner: None 7. History of Hypertension: N 8. Opioid Therapy greater than 6 weeks: Y Opiate Contract Signed: 11/25/05 9. Risk Assessment Tool Provided: LOW 0/3 10. Functional Assessment Tool: 11. Recreational Drug Use: Never Drug Type: Tobacco Use: Former Smoker Tobacco Type: Amount or Packs/day: How Many Years: Alcohol Use: Yes Frequency: Quant:
--- NOTE | 2019-01-11 16:33 | HPC ---
[facility] [place] [address] PAIN MANAGEMENT CONSULTATION Name: BEATA PELLETIER [facility] [id number] Admission: 01/04/19 Attend Phys: Kvng Badillo MD Discharge: Date of : 51 Report #: [id number] THIS REPORT FOR: //name// CC: Chuy Badillo DATE OF SERVICE: 01/04/2019 CHIEF COMPLAINT: Sedation, confusion and dizziness. HISTORY OF PRESENT ILLNESS: The patient was seen just 3 days ago. Please refer to that dictation. We discussed medication management at that time. We are trying to find a medication that she can take successfully for her chronic pudendal neuralgia. At that time, we settled on a combination of oxymorphone, pregabalin and her chronic use of nortriptyline. She had taken the doses described and reported that she had had fairly significant pain relief. Side effects have been noted as reported mostly nocturnal disturbance. She was functioning at work at that time. Her apparently received a phone call she was not acting normally at work yesterday. She was lying her head down, falling asleep and she was at times not making sense and seemed to be more confused. She had not taken different doses. She had taken oxymorphone 7.5 mg in the morning and 15 mg at bedtime in addition to her Lyrica 100 mg b.i.d. and nortriptyline. She reports that she has had some burning and foul smelling urine, so she may have urinary tract infection. Otherwise, her health has been unchanged. PHYSICAL EXAMINATION: GENERAL: Today on admission, she seems a bit subdued. Her speech pattern is a little slow. She is able to converse with staff and with me as we brought her directly back into the clinic and laterally down. VITAL SIGNS: Blood pressure was taken several times and got some spurious readings and the last reading I saw him before discharge from the clinic was in the range of 110/60. This is similar to her blood pressures from 3 days before. HEENT: Her pupils are equal, round and reactive to light. There is no pupillary dilatation. No nystagmus is noted. CHEST: Clear. CARDIAC: Rhythm is regular. PELVIC: Once again deferred. NEUROLOGIC: Gait is antalgic. IMPRESSION: Dizziness and some mild disorientation and confusion, possibly secondary to polypharmacy or single drug effect. Also in this differential would include urinary tract infection and possible urosepsis, although I find [address] [address] PAIN MANAGEMENT CONSULTATION Name: BEATA PELLETIER Room #: REG [facility].#: [id number] Admission: 01/04/19 Attend Phys: Kvng Badillo MD Discharge: Date of : 51 Report #: [id number] that to be unlikely. Additional metabolic causes should be considered including hyponatremia, which can occur sometimes with anti-seizure medications. RECOMMENDATION: 1. We will immediately taper her opioid medication and take her off of the oxymorphone. As noted, she was on higher MME dose than she had been on chronically. We will try to avoid withdrawal and tapering. I would also like to see her on a low dose of Lyrica since I have seen a number of patients who had issues with Lyrica related to dizziness, lightheadedness and at times even confusion. Both will be reduced in an attempt to reverse this unpleasant sensation. 2. I have ordered a complete metabolic profile with electrolytes, BUN and creatinine and blood glucose. 3. Clean catch urine for UA culture and sensitivity. 4. I have asked for the results to be sent and call directly to me or fax to the pain clinic. 5. Notify Dr. Santana, primary care physician. I will follow up with by phone within the next 24 hours. <ELECTRONICALLY SIGNED> By: Kvng Badillo MD 01/11/19 1633 [id number] Kvng Badillo MD /nt
== END ==
LOC: PAIN 07:05
DX: R42 Dizziness and giddiness (principal); M79.2 Neuralgia and neuritis, unspecified; G31.84 Mild cognitive impairment of uncertain or unknown etiology

== ENCOUNTER 2019-01-06 18:48 | Inpatient (IN) | payer OTHER ==
[~2019-01-06] VITALS: Ht 167.6 cm; Wt 89.1 kg
[2019-01-06 18:49] VITALS: BP 131/53
[2019-01-06 19:54] LABS: ABSOLUTE NEUTROPHILS 10.7 thou/uL (1.4-8.2); BASOPHILS 0.3 % (0.0-2.0); EOSINOPHILS 0.2 % (0.0-3.0); HEMATOCRIT 30.8 % (37.0-47.0); HEMOGLOBIN 10.5 gm/dL (12.0-15.0); LYMPHOCYTES 26.7 % (24.0-44.0); MCH 29.6 pg (26.0-34.0); MCHC 33.9 g/dL (28.0-37.0); MCV 87.3 fL (80.0-100.0); MONOCYTES 7.8 % (1.0-8.0); PLATELET COUNT 204 thou/uL (150-400); RBC 3.53 mil/uL (4.20-5.00); RDW 13.5 % (10.5-14.5); WBC 16.5 thou/uL (4.0-11.0)
[2019-01-06 20:10] LABS: ANION GAP 12 mmol/L (7-16); BUN 24 mg/dL (7-18); CALCIUM 8.8 mg/dL (8.5-10.1); CHLORIDE 101 mmol/L (98-107); CO2 22 mmol/L (21-32); CREATININE 1.4 mg/dL (0.6-1.0); GLUCOSE 119 mg/dL (74-106); POTASSIUM 3.9 mmol/L (3.5-5.1); SODIUM 135 mmol/L (136-145)
[2019-01-06 20:15] LABS: MAGNESIUM 1.9 mg/dL (1.8-2.4); TROPONIN-I <0.06 ng/mL (<0.06)
[2019-01-06] MEDS ORDERED: LYRICA 50 MG50 MG PO (20:48)
[2019-01-06 21:00] LABS: URINE BILIRUBIN NEGATIVE (Negative); URINE BLOOD 1+ (Negative); URINE CLARITY SL CLOUDY; URINE COLOR YELLOW; URINE GLUCOSE-RANDOM* NEGATIVE (Negative); URINE KETONES NEGATIVE (Negative); URINE LEUKOCYTES-REFLEX 3+ (Negative); URINE NITRITE-REFLEX POSITIVE (Negative); URINE PROTEIN (DIPSTICK) 1+ (Negative); URINE SPECIFIC GRAVITY <= 1.005 (1.005-1.035)
[2019-01-06 21:08] LABS: AMP/METHAMP Negative (Negative); BARBITURATES Negative (Negative); BENZODIAZEPINES Negative (Negative); COCAINE Negative (Negative); METHADONE Negative (Negative); OPIATES POSITIVE (Negative); PCP Negative (Negative)
[2019-01-06 21:11] LABS: BACTERIA-REFLEX >30 Many /HPF (None Seen); CASTS None Seen /LPF (None Seen); CRYSTALS None Seen /LPF (None Seen); MUCUS 0-3 Light strn/LPF (None Seen); SQUAMOUS None Seen /LPF (0-3); URINE RBC 3-10 Few /HPF (0-2); URINE WBC-REFLEX >25 Many /HPF (0-5)
[2019-01-06 23:06] VITALS: BP 135/69
[2019-01-06 23:13] VITALS: BP 131/71
[2019-01-07 00:30] VITALS: BP 115/58
--- NOTE | 2019-01-07 03:54 | NUR ---
PATIENT ARRIVED ON UNIT AT 2330 VIA CART ACCOMPANIED BY ED PERSONEL. PATIENT ALERT AND ORIENTED X4. HAD TEMP OF 100.4, TYLEOL GIVEN, 1 HOUR LATER TEMP WAS 99.2. SLEPT OFF AND ON DURING NIGHT. wORKING TOWARD POC.
[2019-01-07 04:00] VITALS: BP 100/49
[2019-01-07 04:40] LABS: CALCIUM 8.5 mg/dL (8.5-10.1); CREATININE 1.2 mg/dL (0.6-1.0); POTASSIUM 3.3 mmol/L (3.5-5.1)
[2019-01-07 04:53] LABS: HEMATOCRIT 28.5 % (37.0-47.0); HEMOGLOBIN 9.5 gm/dL (12.0-15.0); MCH 29.1 pg (26.0-34.0); MCHC 33.3 g/dL (28.0-37.0); MCV 87.5 fL (80.0-100.0); RBC 3.26 mil/uL (4.20-5.00); RDW 13.8 % (10.5-14.5); WBC 14.2 thou/uL (4.0-11.0)
[2019-01-07 08:00] VITALS: BP 132/59
--- NOTE | 2019-01-07 10:00 | NUR ---
ASSUMED CARE OF PT APPROX 0715, ROOM AIR, C/O PAIN VULVA AREA, WILL KEEP ATOP OF PAIN MED ADM, ROOM AIR, WHEN ASKED IF SHE'D LIKE ME TO ASK FOR POLY/FIBER SHE STATES SHE HAS LOOSE STOOLS HER NORM. ENCOURAGED HER TO SEE CALL LIGHT FOR ANY NEEDS. WILL CONTINUE TO MONITOR, IVF RUNNING. SEE SEPARATE INTERVENTIONS FOR ASSESSMENT, A&0X4, NO CONFUSION AT THIS TIME, PLEASANT. SBA TO RESTROOM
--- NOTE | 2019-01-07 11:45 | EKG ---
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 : 1955 Requested By: Ashish Johnson Order Number: [id number] MD: Mani Calvillo Measurements Intervals [place] Rate: 98 P: 37 LA: 156 QRS: 10 QRSD: 90 T: 60 QT: 342 QTc: 437 Interpretive Statements Sinus rhythm Borderline T wave abnormalities Compared to ECG 03/16/2017 14:33:07 T-wave abnormality now present Atrial premature complex(es) no longer present Left ventricular hypertrophy no longer present Electronically Signed On 01-07-2019 11:45:15 CDT by Mani Calvillo [email or web address] <ELECTRONICALLY SIGNED> By: Mani Calvillo MD 01/07/19 1145 [id number] 39 Mani Calvillo MD /[facility]
[2019-01-07 15:00] VITALS: BP 124/57
[2019-01-07 20:19] VITALS: BP 141/62
--- NOTE | 2019-01-08 02:00 | NUR ---
ASSUMED CARE OF PT AT 1900HRS. PT AOX4 AND LETS NEEDS BE KNOWN. PT HAS A STEADY GAIT AND NO LONGER NEEDS FALL PRECAUTION. PT COMPLAINED OF SOME PAIN AND WAS TREATED WITH PRN SHIPMAN MEDS. PT WAS ABLE TO SLEEP PART OF THE SHIFT. NO S/S OF ACUTE DISTRESS. WILL CONTINUE TO MONITOR.
[2019-01-08 08:50] LABS: ABSOLUTE NEUTROPHILS 6.7 thou/uL (1.4-8.2); BASOPHILS 0.6 % (0.0-2.0); EOSINOPHILS 2.4 % (0.0-3.0); HEMATOCRIT 27.1 % (37.0-47.0); LYMPHOCYTES 30.8 % (24.0-44.0); MCH 29.2 pg (26.0-34.0); MCHC 33.2 g/dL (28.0-37.0); MCV 88.1 fL (80.0-100.0); MONOCYTES 6.1 % (1.0-8.0); PLATELET COUNT 235 thou/uL (150-400); POLYS 60.1 % (36.0-66.0); RBC 3.07 mil/uL (4.20-5.00); RDW 14.2 % (10.5-14.5); WBC 11.1 thou/uL (4.0-11.0)
[2019-01-08 08:59] LABS: CALCIUM 8.7 mg/dL (8.5-10.1); POTASSIUM 3.4 mmol/L (3.5-5.1)
--- NOTE | 2019-01-08 09:19 | NUR ---
Nutrition: Pt assessed per screening. Here with sepsis, UTI, delirium. Hx: diastolic heart failure, bartholin gland CA (1999). On a heart healthy diet. Pt managed 80-100% of all 3 meals yesterday. During visit, pt reports low appetite 1-2 weeks. States "joked with my , we haven't made dinner all week." Per pt, just didn't think about it due to not being hungry. No recent loss. UBW per 2018 was 183-191#, now 196# per 01/06/19. Pt aware she needs to call kitchen to make menu changes to help her eat even better, with foods she likes/prefers best. RD offered to help, pt declined stating she could do it. Educated on focusing on protein first at meal times, saving sides for last. Informed of protein sources; how to achieve at meals. Shared options of peanut butter and yogurt for snacks on floors too. Place as low nutrition risk.
--- NOTE | 2019-01-08 13:55 | NUR ---
ORDERS RECEIVED FOR EVAL AND TREAT. SPOKE WITH Pt AND SHE SAYS SHE FEELS BACK TO NORMAL AND HAVING NO DIFFICULTY WITH MOBILITY. OBSERVED HER STAND AND AMBULATE IN THE ROOM WITHOUT DIFFICULTY. Pt DECLINING FORMAL P.T. EVAL BUT APPEARS SAFE FOR HOME WHEN MEDICALLY CLEAR
[2019-01-08 14:25] VITALS: BP 119/60
--- NOTE | 2019-01-08 14:54 | NUR ---
ORDER REC'D FOR OT EVAL AND TREAT. EVAL INITIATED W/INTERVIEW AND OBSERVATION OF PATIENT WALKING TO BATHROOM AND STEPPING IN AND OUT OF SHOWER W/NO LOB. PT DOES NOT THINK THAT SHE NEEDS ACUTE OT AND WILL BE DISCHARGED FROM SERVICE. PHYSICAL THERAPY HAS ALSO D/C'D AND PATIENT IS ABLE TO BE UP AD CÉSAR.
--- NOTE | 2019-01-08 16:30 | NUR ---
PT ADMITTED RELATED TO SEPSIS, UTI, DELIRIUM. CM REVIEWED CHART AND SPOKE WITH CARE TEAM. CM MET WITH PT AND SPOUSE AT BEDSIDE THIS DAY. PT IS A&O X4. CM ROLE INTRODUCED. PT INDICATED SHE HAD BEEN INDEPEDNENT WITH GAIT AND ADLS OIL WELL PUMPER. PT INDICATED THERE ARE 2 STEPS TO ENTER FRONT OF HOUSE AND 7 IN THROUGH GARAGE PT INDICATED THERE AREN'T ANY STEPS INSIDE. 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 CM TO FOLLOW INDICATED WITH DC PLANNING.
[2019-01-08 19:16] VITALS: BP 132/63
--- NOTE | 2019-01-08 19:22 | NUR ---
PATIENT ALERT AND ORIENTED X 4 TODAY. NO CONFUSION NOTED. AFEBRILE. PAIN WELL CONTROLLED. VOIDING WITHOUT DIFFICULTY AND IN ADEQUATE AMOUNTS. TOLERATING DIET. IVF'S CONTINUED ORDERED. UP AD CÉSAR AND TOLERATING WELL. PLAN IS TO DISCHARGE HOME POSSIBLY TOMORROW. VERY PLEASANT AND COOPERATIVE PATIENT.
--- NOTE | 2019-01-09 03:13 | NUR ---
ASSUMED CARE OF PT AT 1900HRS. PT IS AOX4 AND UP AD CÉSAR. PT REPORTED SOME PAIN ANND WAS TREATED WITH PRN PAIN MEDS. ABX TREATMENT CONTINUED. VITAL SIGNS STABLE. PT WAS ABLE TO GET COMFORTABLE AND SLEEP PART OF THE SHIFT. PT PROGRESSING TOWARDS DC GOALS.
[2019-01-09 03:45] VITALS: BP 119/61
[2019-01-09 05:46] LABS: HEMATOCRIT 29.5 % (37.0-47.0); HEMOGLOBIN 9.6 gm/dL (12.0-15.0); MCHC 32.6 g/dL (28.0-37.0); MCV 88.9 fL (80.0-100.0); RBC 3.32 mil/uL (4.20-5.00); RDW 14.7 % (10.5-14.5); WBC 17.2 thou/uL (4.0-11.0)
[2019-01-09 05:53] LABS: CALCIUM 8.4 mg/dL (8.5-10.1); CREATININE 0.8 mg/dL (0.6-1.0); POTASSIUM 4.1 mmol/L (3.5-5.1)
[2019-01-09 07:27] VITALS: BP 127/66
[2019-01-09 15:02] VITALS: BP 121/65
--- NOTE | 2019-01-09 15:17 | NUR ---
CARE TEAM INDICATED THAT PT'S WBC INCREASED AND THAT THEY WERE CONSIDERING CONSULTING ID. CM TO FOLLOW INDICATED WITH DC PLANNING.
--- NOTE | 2019-01-09 15:29 | NUR ---
PT STABLE THROUGHOUT SHIFT. PT UP TO CHAIR FOR SEVERAL HOURS WHICH HE TOLERATED WELL. PT C/O PAIN BUT ONLY NEEDED MEDICATION ONE TIME. PT RESTING COMFORTABLY, WAITING FOR AUT TO TRANSFER TO 5N.
--- NOTE | 2019-01-09 15:33 | NUR ---
PT STABLE THROUGHOUT SHIFT. PT DISAPPOINTED AT NOT DISCHARGING TODAY. NO C/O PAIN THIS SHIFT. PT RESTING COMFORTABLY, UP AT CÉSAR. WILL CONTINUE TO MONITOR.
[2019-01-09 20:00] VITALS: BP 145/70
--- NOTE | 2019-01-10 05:01 | NUR ---
Assumed pt care at 1900. Pt is A/OX4,up ad cee without problems. VSS. C/o vulva pain medicated with [place] with relief reported. Pt verbalizes desire to dc today,awaiting lab results.Resting quietly with no distress noted at this time will continue to monitor. IVF infusing via RAC without problems.
[2019-01-10 05:50] LABS: HEMATOCRIT 27.2 % (37.0-47.0); MCH 29.4 pg (26.0-34.0); MCHC 33.3 g/dL (28.0-37.0); MCV 88.5 fL (80.0-100.0); RBC 3.07 mil/uL (4.20-5.00); RDW 14.4 % (10.5-14.5); WBC 10.9 thou/uL (4.0-11.0)
[2019-01-10 06:27] LABS: ALBUMIN 2.1 g/dL (3.4-5.0); CALCIUM 8.6 mg/dL (8.5-10.1); CREATININE 0.8 mg/dL (0.6-1.0); POTASSIUM 3.8 mmol/L (3.5-5.1); TOTAL BILIRUBIN 0.2 mg/dL (<0.1-1.0); TOTAL PROTEIN 6.3 g/dL (6.4-8.2)
[2019-01-10 08:15] VITALS: BP 105/69
--- NOTE | 2019-01-10 16:33 | NUR ---
CARE TEAM INDICATED THAT PT IS MEDICALLY STABLE TO DC HOME THIS DAY. IT IS ANTICIPATED THAT PT WILL HAVE NO NEEDS UPON DC. CM ABLE TO ASSIST SHOULD ANY DC NEEDS ARISE.
[2019-01-10] MEDS ORDERED: CEFDINIR300 MG PO (18:31)
[2019-01-10 18:48] VITALS: BP 105/69
--- NOTE | 2019-01-10 20:32 | NUR ---
COMPLETED DISCHARGE. WENT OVER DC INSTRUCVTIONS WITH PT AND . CALLED IN RX TO [facility] PER PT REQUEST. PT DENIES FURTHER QUESTIONS ABOUT DC OR FOLLOWUP OR MEDICATIONS. NAD NOTED AT TIME OF DC. PT WAS UPSET THAT DC TOOK TOO LONG AND TOLD HER SHE WOULD DC IN AM. PT WAS OK AT TIME OF DC. PT MET GOAL OF DC.
--- NOTE | 2019-01-10 21:59 | HC ---
[facility] [place] [address] CONSULTATION Name: BEATA PELLETIER Room #: 450-P [facility] M.R.#: [id number] Admission: 01/06/19 Attend Phys: Immanuel Forrester MD Discharge: 01/10/19 Date of : 51 Report #: [id number] THIS REPORT FOR: //name// CC: Immanuel Santana DATE OF SERVICE: 01/09/2019 INFECTIOUS DISEASE CONSULTATION REASON FOR CONSULTATION: I was asked to evaluate concerning complicated urinary tract infection. 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 She has been doing reasonably well except for chronic pain. Her pain medication was changed a week ago. Coincidental to that, the patient became more confused. No documented fever, but did have intermittent episodes of chills. No sweats. She was brought into the Emergency Room on 01/06/2019. Blood cultures are growing gram-negative bacilli. Prior to her hospitalization, she was seen by Dr. Badillo who did further evaluation for her confusion. Her narcotics were adjusted. She reports that her urinalysis and urine culture was positive. I do not have those results available yet. Following admission, the patient was placed on ceftriaxone. She has been afebrile. She has had no back or flank pain. She reports chronic low back pain, part of why she is on her narcotics. She reports no dysuria, frequency, hematuria. She has no prior history of urinary tract infections or pyelonephritis. She has no history of nephrolithiasis. REVIEW OF SYSTEMS: No other neurologic issues. No skin, lymph, GI, cardiopulmonary, hematologic issues. Full 10-point review was negative other than what is described above. ALLERGIES: NAPROSYN, POSSIBLY GENTAMICIN, PROMETHAZINE, PROCHLORPERAZINE, METOCLOPRAMIDE. PAST MEDICAL HISTORY: Asthma, chronic left lower extremity edema, meniscal tear, modified radical vulvectomy and lymph node dissection in 1999, pulmonary embolus, pneumonia, endometrial ablation, migraine, esophageal dilatation, sacral nerve stimulator implant, right knee meniscectomy, hyperlipidemia, congestive heart failure. FAMILY HISTORY: Noncontributory. SOCIAL HISTORY: Past smoker, no significant alcohol intake. [facility] [address] [place] [address] CONSULTATION Name: BEATA PELLETIER Room #: [address] [place] [address] IN M.R.#: [id number] Admission: 01/06/19 Attend Phys: Immanuel Forrester MD Discharge: 01/10/19 Date of : 51 Report #: [id number] PHYSICAL EXAMINATION: VITAL SIGNS: Afebrile and hemodynamically stable. GENERAL: She was alert and cooperative, ambulatory. She was in no acute distress. Mental status was normal. SKIN: Without rash or decubitus. No palpable adenopathy. HEENT: Eyes without scleral icterus. Mouth without mucositis. NECK: Supple. LUNGS: Clear to auscultation. HEART: Regular, without murmur, gallop or rub. ABDOMEN: Soft, nontender, no hepatosplenomegaly or mass appreciated. No CVA tenderness. GENITAL AND RECTAL: Not performed. EXTREMITIES: With 1+ edema in the left leg compared to the right. NEUROLOGIC: Cranial nerves intact. Strength in the upper and lower extremities is normal. Sensation upper and lower extremities normal. LABORATORY STUDIES: Hemoglobin 9.6, WBC 17.2, platelet count 279,000. Differential unremarkable. Creatinine 0.8. Urinalysis with many wbc's and bacteria. Blood cultures showing gram-negative bacilli. Urine culture pending. Outside urine culture not yet available. CT of the head negative. Chest x-ray clear. IMPRESSION: A 63-year-old with: 1. History of vulvar cancer, radiation therapy to the pelvis, chronic pain syndrome, presents with sepsis with gram-negative bacteremia. The patient continues to have a leukocytosis. Suspect complicated urinary tract source. 2. Chronic pain syndrome. 3. Asthma. 4. Congestive heart failure, controlled. RECOMMENDATION: We will continue IV antibiotic therapy. We will obtain culture results. CT scan of the abdomen and pelvis. May need Gynecology followup for further detailed examination. <ELECTRONICALLY SIGNED> By: Jorge Sanchez MD 01/10/19 [id number] Jorge Sanchez MD /nt
== END 2019-01-10 20:30 | disposition home or self-care (01) | DRG 872 ==
LOC: ER 18:48 → 4W 21:21 → EROBS 21:21 → 4W 23:24
PROVIDERS: Emergency Medicine; Nurse Practitioner Acute Care; Specialist; ADMIT Hospitalist
DX: A41.50 Gram-negative sepsis, unspecified (principal); F11.20 Opioid dependence, uncomplicated; N17.9 Acute kidney failure, unspecified; N12 Tubulo-interstitial nephritis, not specified as acute or chronic; I13.0 Hypertensive heart and chronic kidney disease with heart failure and stage 1 through stage 4 chronic kidney disease, or unspecified chronic kidney disease; G43.909 Migraine, unspecified, not intractable, without status migrainosus; G62.9 Polyneuropathy, unspecified; I48.91 Unspecified atrial fibrillation; J45.909 Unspecified asthma, uncomplicated; I10 Essential (primary) hypertension; E78.5 Hyperlipidemia, unspecified; R41.0 Disorientation, unspecified; G89.4 Chronic pain syndrome; R10.2 Pelvic and perineal pain; N18.9 Chronic kidney disease, unspecified; B96.20 Unspecified Escherichia coli [E. coli] as the cause of diseases classified elsewhere; Z87.891 Personal history of nicotine dependence; Z83.6 Family history of other diseases of the respiratory system; Z86.711 Personal history of pulmonary embolism; Z88.8 Allergy status to other drugs, medicaments and biological substances; Z88.1 Allergy status to other antibiotic agents; Z87.01 Personal history of pneumonia (recurrent); Z85.89 Personal history of malignant neoplasm of other organs and systems; Z92.3 Personal history of irradiation; Z79.82 Long term (current) use of aspirin; Z79.899 Other long term (current) drug therapy; Z80.7 Family history of other malignant neoplasms of lymphoid, hematopoietic and related tissues; I50.9 Heart failure, unspecified
CPT/HCPCS: 10040; 10045

== ENCOUNTER → 2019-03-26 | Outpatient (CLI) | payer OTHER ==
[~2019-03-26] VITALS: Ht 170.2 cm; Wt 88.1 kg
[~2019-03-26] MED LIST changes: +BUTRANS1 EACH INTRADERM
--- NOTE | ~2019-03-26 | HPC ---
[facility] [place] [address] PAIN MANAGEMENT CONSULTATION Name: BEATA PELLETIER Room #: REG [facility]..#: [id number] Admission: 03/26/19 Attend Phys: Kvng Badillo MD Discharge: Date of : 51 Report #: [id number] THIS REPORT FOR: //name// CC: MARAL Badillo DATE OF SERVICE: 03/26/2019 Followup visit for chronic pain. The patient returns to pain clinic today to discuss additional options for managing her chronic pain. She has been on an opioid agreement for a number of years. She is on Monument 10/325 mg 4 tablets daily on schedule. She takes nortriptyline 50 mg at bedtime. We discussed other medication options today. I also spent a good deal of time today talking to her about spinal cord stimulation. She also has a [employer] stimulation device placed by Dr. Gonzalez for fecal incontinence. It worked well for the first 2 years now, not working quite effectively. I was unfamiliar with the role of this device, but I did want to see its location, so as a portion of her physical exam, we went to the fluoroscopic suite for a quick picture. The lead, which appears similar to a spinal cord stimulation lead enters in through the posterior sacral hiatus of roughly S2, S3 and then extends in through the out flow of the anterior foramen extending 2 cm or so. There only for 4 electrodes on the lead. The battery is in the left hip. I cannot tell whether the device is functioning, although the patient can tell when it is on. Her pain is in both hips where she has arthropathy. She has pain across her low back. She has pain radiating into the pudendal region and has a longstanding history of pudendal neuralgia. She has returned to work. She suffered significant changes in mental status requiring hospitalization when she had bacteremia from urinary tract infection. During this period of urosepsis, she was significantly affected and it took her several weeks to get back to baseline. We have tried transitioning to oxymorphone and a long-acting opioid, but this was very poorly tolerated. She had questions about maybe a different opioid today as we discussed other options. I have given her a prescription for Butrans 5 mcg per hour and she is going to fill this after considering it further. I have also renewed her hydrocodone 10/325 of 4 tablets daily with refill prescriptions for 4 and 8 weeks if she decides to stay on them. I see [address] [address] PAIN MANAGEMENT CONSULTATION Name: BEATA PELLETIER Room #: REG [facility].#: [id number] Admission: 03/26/19 Attend Phys: Kvng Badillo MD Discharge: Date of : 51 Report #: [id number] the patient fairly regularly in the hospital. She reports that she is able to function reasonably well and continuing to work. She denies medication related side effects and is grateful for the pain relief that they provide. She carefully safeguards all her medication. IMPRESSION: 1. Chronic intractable pain with pudendal neuralgia and osteoarthritis, bilateral hips. 2. History of vulvar cancer, stage 2, in remission nearly 20 years. 3. Diastolic heart failure, under treatment. 4. History of asthma. 5. History of hypertension. 6. Management of high risk medications under written opioid agreement. PLAN: I renewed her medications, nortriptyline, Monument and a new trial for Butrans and will be seeing her in the hospital to discuss how the medication trials going. She will consider spinal cord stimulation again was provided literature for review. I spent time today discussing the trial process as well as implant. By: [id number] Kvng Badillo MD /nt
[2019-03-26 10:07] VITALS: BP 116/73
--- NOTE | 2019-03-26 10:23 | NUR ---
Pain Clinic Assessment: 1. History of Osteoarthritis: KNEE HIPS History of Rheumatoid Arthritis: NO 2. Height: 5 ft. 7 in. 170.2 cm. Weight: 194.2 lb. oz. 88.089 kg. Patient's BMI: 30.4 3. Vital Signs: BP: 116/73 Pulse: 76 Resp: 16 Temp: 02 Sat: 97 ECG Mon: 4. Pain Intensity: 5 AVG 6-7 WORST 5. Fall Risk: Dizziness: N Needs help standing or walking: N Fallen in the last 3 months: N Fall risk comments: 6. Patient on Blood Thinner: None 7. History of Hypertension: N 8. Opioid Therapy greater than 6 weeks: Y Opiate Contract Signed: 11/25/05 9. Risk Assessment Tool Provided: LOW 0/3 10. Functional Assessment Tool: 11. Recreational Drug Use: Never Drug Type: Tobacco Use: Former Smoker Tobacco Type: Amount or Packs/day: How Many Years: Alcohol Use: Yes Frequency: Quant:
== END ==
LOC: PAIN 07:03
DX: G89.4 Chronic pain syndrome (principal); I50.9 Heart failure, unspecified; I11.0 Hypertensive heart disease with heart failure; J45.909 Unspecified asthma, uncomplicated; Z79.891 Long term (current) use of opiate analgesic; Z79.899 Other long term (current) drug therapy

== ENCOUNTER → 2019-06-25 | Outpatient (CLI) | payer OTHER ==
[~2019-06-25] VITALS: Ht 172.7 cm; Wt 85.7 kg
--- NOTE | ~2019-06-25 | HPC ---
[facility] [place] [address] PAIN MANAGEMENT CONSULTATION Name: BEATA PELLETIER Room #: REG [facility].#: [id number] Admission: 06/25/19 Attend Phys: Kvng Badillo MD Discharge: Date of : 51 Report #: [id number] THIS REPORT FOR: //name// CC: MARAL Badillo DATE OF SERVICE: 06/25/2019 Followup visit for pudendal neuralgia, chronic. The patient returns to pain clinic today to discuss further options. We reviewed the course over the last 6 months. She was hospitalized for urosepsis in December or January. It took about 4 weeks for her to get back to baseline. She is getting along okay and that is the best I cannot say for it. She takes hydrocodone 10/325 four times daily and has done so for over a decade. This has allowed her to continue working, but I do not think that it is the best that we can provide for her in pain relief. We have discussed many times other options including spinal cord stimulation. There are now other advanced techniques using electricity to interfere with pain pathways. She may be a candidate for another type of stimulator placed, not over the spinal cord, but either along the nerve root. DRG stimulation is also becoming more popular. I do not feel that I am the most ideal physician to provide that therapy for her, but we will help her find a physician to provide that care. Today, she complains of pain at an intensity of 3-4 with medication. Pain is in her pelvis and in her perineum and she describes it as a burning and throbbing. It is hypersensitive, exacerbated by the usual tactile sensations in that area. It is exacerbated also by walking. She also has some pain radiating into her hips and complains of pain in her right knee, which may be arthralgic. 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 She is now on Medicare. We discussed her coverage and the process required for a stimulating device. PQRS REVIEW: Positive for osteoarthritis involving hips and knees. BMI 28.7. Blood pressure 150/82, heart rate 81, respirations 14, pain intensity is 3-4/10 today with medication. She is not a fall risk. Denies difficulty standing, walking and has not fallen in the last 3 months. She is on no blood thinning medications, but is treated for hypertension by Dr. Santana. All of her medications were reviewed and reconciled including those for pain and her other conditions. She has completed an opioid risk assessment score and scores [address] [address] PAIN MANAGEMENT CONSULTATION Name: BEATA PELLETIER Room #: [facility] [id number] Admission: 06/25/19 Attend Phys: Kvng Badillo MD Discharge: Date of : 51 Report #: [id number] is a low risk for addiction. Her functional assessment score is 28/70, a slight increase from her prior number of 19, suggesting a greater impact of pain on her day-to-day activities. She denies use of tobacco, drinks alcohol occasionally in social setting without problem. PHYSICAL EXAMINATION: VITAL SIGNS: As noted: GENERAL: She is pleasant, alert and oriented. No signs of overmedication. I did not examine her with a pelvic exam, but have requested that she do so with her primary care physician or with her BUSINESS ANALYSIS SPECIALIST, so that we have a more expert exam than mine. IMPRESSION: 1. Pudendal neuralgia, chronic. 2. History of vulvar cancer dating back 20 years. 3. Diastolic heart failure. 4. History of asthma. 5. Hypertension. 6. Management of opioid medications under terms of written opioid agreement. PLAN: I am going to renew her usual medications and we will carry those on until we have an established plan for stimulation. Multiple questions were asked and answered. Followup visit planned as needed. By: [id number] Kvng Badillo MD /nt
[2019-06-25 09:36] VITALS: BP 150/82
--- NOTE | 2019-06-25 09:37 | NUR ---
Pain Clinic Assessment: 1. History of Osteoarthritis: KNEE HIPS History of Rheumatoid Arthritis: NO 2. Height: 5 ft. 8 in. 172.7 cm. Weight: 189.0 lb. oz. 85.730 kg. Patient's BMI: 28.7 3. Vital Signs: BP: 150/82 Pulse: 81 Resp: 14 Temp: 02 Sat: 99 ECG Mon: 4. Pain Intensity: 3-4 5. Fall Risk: Dizziness: N Needs help standing or walking: N Fallen in the last 3 months: N Fall risk comments: 6. Patient on Blood Thinner: None 7. History of Hypertension: Y 8. Opioid Therapy greater than 6 weeks: Y Opiate Contract Signed: 11/25/05 9. Risk Assessment Tool Provided: LOW 0/3 10. Functional Assessment Tool: 11. Recreational Drug Use: Never Drug Type: Tobacco Use: Former Smoker Tobacco Type: Amount or Packs/day: How Many Years: Alcohol Use: Yes Frequency: Quant:
== END ==
LOC: PAIN 06:42
DX: G58.8 Other specified mononeuropathies (principal); J45.909 Unspecified asthma, uncomplicated; I10 Essential (primary) hypertension; Z79.891 Long term (current) use of opiate analgesic; Z79.899 Other long term (current) drug therapy

== ENCOUNTER → 2019-09-06 | Outpatient (CLI) | payer OTHER | LOC: PAIN 07:11 | DX: G58.8 Other specified mononeuropathies (principal); F11.20 Opioid dependence, uncomplicated ==

== ENCOUNTER → 2019-12-20 | Outpatient (CLI) | payer OTHER ==
[~2019-12-20] VITALS: Ht 172.7 cm; Wt 83.6 kg
--- NOTE | ~2019-12-20 | HPC ---
[facility] [place] [address] PAIN MANAGEMENT CONSULTATION Name: BEATA PELLETIER Room #: REG [facility].#: [id number] Admission: 12/20/19 Attend Phys: Kvng Badillo MD Discharge: Date of : 51 Report #: [id number] THIS REPORT FOR: cc: Chuy Santana MD, Rene P. MD Morgan,Kvng Del Real MD ~ CC: Chuy Badillo DATE OF SERVICE: 12/20/2019 Followup visit for chronic pudendal neuralgia. The patient returns to pain clinic today for renewal of her pain medications. She is on a longstanding opioid agreement. Her last medicines were provided for her on 09/06/2019. She has had some problems getting her nortriptyline provided at 3-month intervals. I did note on her prescriptions today, so that that can hopefully be corrected. In the interval since her last visit, she has been evaluated by physical therapy and has been seeing them twice a week. She is doing stretching, cardiovascular and weight work and has lost 20 pounds ! She feels better, is walking better and her gait is markedly improved. PQRS: Positive for osteoarthritis of the hip. Her BMI now is down to 28.0 from 29.7 at her last visit. Blood pressure is 115/61, heart rate 75, respirations 14, pain intensity also down at the 3/10. Her functional assessment score is down to a 19, an improvement and her risk assessment tool is 0. She is on opioids per her opioid agreement and we reviewed the terms in that agreement and importance of using those medications carefully. She has been on them since prior to 2005. She has shown no misuse, abuse or red flag behaviors. We reviewed all of her medicines on prescription drug monitoring information and there are no unexpected entries. She will carefully safeguard her medicines. PHYSICAL EXAMINATION: GENERAL: She is pleasant, alert and oriented, no signs of anxiety. VITAL SIGNS: As noted. MUSCULOSKELETAL: She moves independently from sitting to standing position. Her gait is much improved from prior visits, but she still has a bit of a broad-based gait and leans forward, slightly as she walks. Tenderness across the low back. Pelvic exam was deferred. IMPRESSION: 1. Chronic pudendal neuralgia with history of vulvar cancer dating back 20 years. 2. Diastolic heart failure. [facility] [address] [place] [address] PAIN MANAGEMENT CONSULTATION Name: BEATA PELLETIER Room #: REG CL Mary#: [id number] Admission: 12/20/19 Attend Phys: Kvng Badillo MD Discharge: Date of : 51 Report #: [id number] 3. History of asthma. 4. Hypertension. 5. Management of opioids under written agreement. Followup visit planned in 3 months. Medications were sent electronically. By: [id number] Kvng Badillo MD /mat
[2019-12-20 10:37] VITALS: BP 115/61
--- NOTE | 2019-12-20 11:02 | NUR ---
Pain Clinic Assessment: 1. History of Osteoarthritis: KNEE HIPS History of Rheumatoid Arthritis: Not Applicable 2. Height: 5 ft. 8 in. 172.7 cm. Weight: 184.2 lb. oz. 83.553 kg. Patient's BMI: 28.0 3. Vital Signs: BP: 115/61 Pulse: 75 Resp: 14 Temp: 02 Sat: 100 ECG Mon: 4. Pain Intensity: 3 5. Fall Risk: Dizziness: N Needs help standing or walking: N Fallen in the last 3 months: N Fall risk comments: 6. Patient on Blood Thinner: None 7. History of Hypertension: Y 8. Opioid Therapy greater than 6 weeks: Y Opiate Contract Signed: 11/25/05 9. Risk Assessment Tool Provided: LOW 0/3 10. Functional Assessment Tool: 11. Recreational Drug Use: Never Drug Type: Tobacco Use: Former Smoker Tobacco Type: Amount or Packs/day: How Many Years: Alcohol Use: Yes Frequency: Monthly Quant: 1-2
== END ==
LOC: PAIN 07:05
PROVIDERS: ATTEND Anesthesiology Pain Medicine
DX: G58.8 Other specified mononeuropathies (principal); C51.9 Malignant neoplasm of vulva, unspecified; I50.30 Unspecified diastolic (congestive) heart failure; J45.909 Unspecified asthma, uncomplicated; I10 Essential (primary) hypertension; F11.20 Opioid dependence, uncomplicated; Z79.899 Other long term (current) drug therapy

== ENCOUNTER → 2020-02-25 | Outpatient (CLI) | payer OTHER ==
[~2020-02-25] VITALS: Ht 172.7 cm; Wt 87.2 kg
[~2020-02-25] MED LIST changes: +CRESTOR20 MG PO; -PRAVACHOL20 MG PO
--- NOTE | ~2020-02-25 | HPC ---
[facility] [place] [address] PAIN MANAGEMENT CONSULTATION Name: BEATA PELLETIER Room #: REG [facility].#: [id number] Admission: 02/25/20 Attend Phys: Kvng Badillo MD Discharge: Date of : 51 Report #: [id number] THIS REPORT FOR: cc: Chuy Santana MD, Rene P. MD Morgan,Kvng Del Real MD ~ CC: Chuy Badillo DATE OF SERVICE: 02/25/2020 Followup visit for chronic pudendal neuralgia. The patient returns to pain clinic today for renewal of her pain medication. She has been on an opioid agreement through our clinic for over 10 years and has done well. She is on a combination of neuropathic pain medication, Lyrica, nortriptyline for sleep and neuropathic pain, lidocaine gel and she has been taking hydrocodone safely and carefully under terms of our written agreement. She denies any side effects, has not escalated her dose. I reviewed her prescription drug monitoring program information and she is on schedule. There have been no significant side effects to address. She carefully safeguards her medicines. Urine drug screens have been performed periodically with no unexpected findings. Her MME is 40. She is grateful for the pain medicine as it allows her to work. Periodically pain is more severe, but it tends to be episodic and usually comes back under control on her own. PHYSICAL EXAMINATION: She is 5 feet 8 inches, BMI of 29.2. She has continued to keep off the weight she lost in the spring. Blood pressure 123/70, heart rate 88, respirations 120, O2 sat 100. She has had some recent edema, but it is better this morning. Her gait is mildly antalgic and she has a broad-based gait. Pelvic exam once again deferred. She complains of pain around the vulva with hypersensitivity. IMPRESSION: 1. Chronic pudendal neuralgia with history of vulvar cancer dating back 20 years. 2. Diastolic heart failure. 3. History of asthma. 4. Hypertension. 5. Management of high risk medications under terms of written opioid agreement. PLAN: I renewed her medications for 3 months and they were sent electronically. [address] [address] PAIN MANAGEMENT CONSULTATION Name: BEATA PELLETIER Room #: REG [facility].#: [id number] Admission: 02/25/20 Attend Phys: Kvng Badillo MD Discharge: Date of : 51 Report #: [id number] She will carefully safeguard them and will I plan to see her back sometime in April or May. By: [id number] Kvng Badillo MD /nt
[2020-02-25 10:55] VITALS: BP 123/70
--- NOTE | 2020-02-25 11:26 | NUR ---
Pain Clinic Assessment: 1. History of Osteoarthritis: KNEE HIPS History of Rheumatoid Arthritis: Not Applicable 2. Height: 5 ft. 8 in. 172.7 cm. Weight: 192.2 lb. oz. 87.181 kg. Patient's BMI: 29.2 3. Vital Signs: BP: 123/70 Pulse: 88 Resp: 20 Temp: 02 Sat: 100 ECG Mon: 4. Pain Intensity: 3 5. Fall Risk: Dizziness: N Needs help standing or walking: N Fallen in the last 3 months: N Fall risk comments: 6. Patient on Blood Thinner: None 7. History of Hypertension: Y 8. Opioid Therapy greater than 6 weeks: Y Opiate Contract Signed: 11/25/05 9. Risk Assessment Tool Provided: LOW 0/3 10. Functional Assessment Tool: 11. Recreational Drug Use: Never Drug Type: Tobacco Use: Former Smoker Tobacco Type: Amount or Packs/day: How Many Years: Alcohol Use: Yes Frequency: Quant:
== END ==
LOC: PAIN 07:03
PROVIDERS: ATTEND Anesthesiology Pain Medicine
DX: G58.8 Other specified mononeuropathies (principal); I11.0 Hypertensive heart disease with heart failure; I50.32 Chronic diastolic (congestive) heart failure; F11.20 Opioid dependence, uncomplicated

== ENCOUNTER → 2020-05-26 | Outpatient (CLI) | payer OTHER ==
[~2020-05-26] VITALS: Ht 167.6 cm; Wt 86.1 kg
[~2020-05-26] MED LIST changes: +OXYMORPHONE HCL10 M1 PO
[2020-05-26 09:12] VITALS: BP 140/81
--- NOTE | 2020-05-26 09:22 | NUR ---
Pain Clinic Assessment: 1. History of Osteoarthritis: KNEE HIPS History of Rheumatoid Arthritis: Not Applicable 2. Height: 5 ft. 6 in. 167.6 cm. Weight: 189.8 lb. oz. 86.093 kg. Patient's BMI: 30.6 3. Vital Signs: BP: 140/81 Pulse: 86 Resp: 16 Temp: 02 Sat: 100 ECG Mon: 4. Pain Intensity: 3 5. Fall Risk: Dizziness: N Needs help standing or walking: N Fallen in the last 3 months: Y Fall risk comments: PT FELL 3 MONTHS AGO IN THE BACK HALLWAY BY OR. HER TOE STUCK ON THE FLOOR ACCORDING TO THE PT; DENIES INJURY 6. Patient on Blood Thinner: None 7. History of Hypertension: Y 8. Opioid Therapy greater than 6 weeks: Y Opiate Contract Signed: 11/25/05 9. Risk Assessment Tool Provided: LOW 0/3 10. Functional Assessment Tool: 11. Recreational Drug Use: Never Drug Type: Tobacco Use: Former Smoker Tobacco Type: Amount or Packs/day: How Many Years: Alcohol Use: Yes Frequency: Weekly Quant: 1
== END ==
LOC: PAIN 06:49
PROVIDERS: ATTEND Anesthesiology Pain Medicine
DX: G58.8 Other specified mononeuropathies (principal); Z88.8 Allergy status to other drugs, medicaments and biological substances

== ENCOUNTER → 2020-06-11 | Outpatient (CLI) | payer OTHER ==
[2020-06-11 14:45] LABS: CREATININE 1.2 mg/dL (0.6-1.0); POTASSIUM 4.2 mmol/L (3.5-5.1)
== END ==
LOC: RAD 13:32
PROVIDERS: ATTEND Internal Medicine Cardiovascular Disease
DX: R06.02 Shortness of breath (principal); Z79.899 Other long term (current) drug therapy

== ENCOUNTER → 2020-06-27 | Outpatient (CLI) | payer OTHER | LOC: SJCVCIMAG 07:24 | PROVIDERS: ATTEND Internal Medicine Cardiovascular Disease | DX: I08.2 Rheumatic disorders of both aortic and tricuspid valves (principal); I27.20 Pulmonary hypertension, unspecified; I11.9 Hypertensive heart disease without heart failure; K83.8 Other specified diseases of biliary tract; I25.10 Atherosclerotic heart disease of native coronary artery without angina pectoris; R14.0 Abdominal distension (gaseous); Z87.891 Personal history of nicotine dependence ==

== ENCOUNTER → 2020-07-28 | Outpatient (CLI) | payer OTHER ==
[~2020-07-28] VITALS: Ht 167.6 cm; Wt 88.5 kg
[~2020-07-28] MED LIST changes: +OXYMORPHONE HCL5 MG PO
[2020-07-28 15:15] VITALS: BP 104/72
--- NOTE | 2020-07-28 15:33 | NUR ---
Pain Clinic Assessment: 1. History of Osteoarthritis: KNEE HIPS History of Rheumatoid Arthritis: Not Applicable 2. Height: 5 ft. 6 in. 167.6 cm. Weight: 195.2 lb. oz. 88.542 kg. Patient's BMI: 31.5 3. Vital Signs: BP: 104/72 Pulse: 91 Resp: 16 Temp: 02 Sat: 96 ECG Mon: 4. Pain Intensity: 4 5. Fall Risk: Dizziness: N Needs help standing or walking: N Fallen in the last 3 months: N Fall risk comments: PT FELL 3 MONTHS AGO IN THE BACK HALLWAY BY OR. HER TOE STUCK ON THE FLOOR ACCORDING TO THE PT; DENIES INJURY 6. Patient on Blood Thinner: None 7. History of Hypertension: Y 8. Opioid Therapy greater than 6 weeks: Y Opiate Contract Signed: 11/25/05 9. Risk Assessment Tool Provided: LOW 0 10. Functional Assessment Tool: 11. Recreational Drug Use: Never Drug Type: Tobacco Use: Former Smoker Tobacco Type: Amount or Packs/day: How Many Years: Alcohol Use: Yes Frequency: Weekly Quant: 1
== END ==
LOC: PAIN 07:02
PROVIDERS: ATTEND Anesthesiology Pain Medicine
DX: G58.8 Other specified mononeuropathies (principal); G89.29 Other chronic pain; I11.0 Hypertensive heart disease with heart failure; I50.30 Unspecified diastolic (congestive) heart failure; J45.909 Unspecified asthma, uncomplicated; F11.120 Opioid abuse with intoxication, uncomplicated; Z88.8 Allergy status to other drugs, medicaments and biological substances; Z79.899 Other long term (current) drug therapy

== ENCOUNTER → 2020-08-20 | Outpatient (CLI) | payer OTHER | LOC: LAB 08:32 | PROVIDERS: ATTEND Internal Medicine | DX: R14.0 Abdominal distension (gaseous) (principal); Z85.9 Personal history of malignant neoplasm, unspecified; M16.0 Bilateral primary osteoarthritis of hip; M41.86 Other forms of scoliosis, lumbar region; M51.36 Other intervertebral disc degeneration, lumbar region ==

== ENCOUNTER → 2020-10-10 | Outpatient (CLI) | payer OTHER, MEDICARE | LOC: SJCVC 11:04 | PROVIDERS: ATTEND Internal Medicine Cardiovascular Disease | DX: R94.31 Abnormal electrocardiogram [ECG] [EKG] (principal); I25.10 Atherosclerotic heart disease of native coronary artery without angina pectoris; I10 Essential (primary) hypertension; E78.00 Pure hypercholesterolemia, unspecified; G47.33 Obstructive sleep apnea (adult) (pediatric); I35.1 Nonrheumatic aortic (valve) insufficiency; I48.91 Unspecified atrial fibrillation; G43.909 Migraine, unspecified, not intractable, without status migrainosus; Z86.718 Personal history of other venous thrombosis and embolism; Z86.711 Personal history of pulmonary embolism; Z79.82 Long term (current) use of aspirin; Z79.899 Other long term (current) drug therapy; Z87.891 Personal history of nicotine dependence; Z72.89 Other problems related to lifestyle; Z88.1 Allergy status to other antibiotic agents; Z88.8 Allergy status to other drugs, medicaments and biological substances ==

== ENCOUNTER → 2020-10-13 | Outpatient (CLI) | payer OTHER, MEDICARE ==
[~2020-10-13] VITALS: Ht 167.6 cm; Wt 84.7 kg
[2020-10-13 13:34] VITALS: BP 123/61
--- NOTE | 2020-10-13 13:40 | NUR ---
Pain Clinic Assessment: 1. History of Osteoarthritis: KNEE HIPS History of Rheumatoid Arthritis: Not Applicable 2. Height: 5 ft. 6 in. 167.6 cm. Weight: 186.8 lb. oz. 84.732 kg. Patient's BMI: 30.2 3. Vital Signs: BP: 123/61 Pulse: 89 Resp: 16 Temp: 02 Sat: 99 ECG Mon: 4. Pain Intensity: 4 5. Fall Risk: Dizziness: N Needs help standing or walking: N Fallen in the last 3 months: N Fall risk comments: PT FELL 3 MONTHS AGO IN THE BACK HALLWAY BY OR. HER TOE STUCK ON THE FLOOR ACCORDING TO THE PT; DENIES INJURY 6. Patient on Blood Thinner: None 7. History of Hypertension: Y 8. Opioid Therapy greater than 6 weeks: Y Opiate Contract Signed: 11/25/05 9. Risk Assessment Tool Provided: LOW 0 10. Functional Assessment Tool: 11. Recreational Drug Use: Never Drug Type: Tobacco Use: Former Smoker Tobacco Type: Amount or Packs/day: How Many Years: Alcohol Use: Yes Frequency: Monthly Quant: 1
== END ==
LOC: PAIN 07:51
PROVIDERS: ATTEND Anesthesiology Pain Medicine
DX: G89.4 Chronic pain syndrome (principal); M79.2 Neuralgia and neuritis, unspecified; Z79.899 Other long term (current) drug therapy; Z88.1 Allergy status to other antibiotic agents; Z88.8 Allergy status to other drugs, medicaments and biological substances; Z87.891 Personal history of nicotine dependence; Z72.89 Other problems related to lifestyle; Z79.891 Long term (current) use of opiate analgesic

== ENCOUNTER → 2021-01-15 | Outpatient (CLI) | payer OTHER, MEDICARE ==
[~2021-01-15] VITALS: Ht 167.6 cm; Wt 73.0 kg
[2021-01-15 08:44] VITALS: BP 133/63
--- NOTE | 2021-01-15 08:54 | NUR ---
Pain Clinic Assessment: 1. History of Osteoarthritis: KNEE HIPS History of Rheumatoid Arthritis: Not Applicable 2. Height: 5 ft. 6 in. 167.6 cm. Weight: 161.0 lb. oz. 73.029 kg. Patient's BMI: 26.0 3. Vital Signs: BP: 133/63 Pulse: 85 Resp: 16 Temp: 02 Sat: 99 ECG Mon: 4. Pain Intensity: 2 5. Fall Risk: Dizziness: N Needs help standing or walking: N Fallen in the last 3 months: N Fall risk comments: PT FELL 3 MONTHS AGO IN THE BACK HALLWAY BY OR. HER TOE STUCK ON THE FLOOR ACCORDING TO THE PT; DENIES INJURY 6. Patient on Blood Thinner: None 7. History of Hypertension: Y 8. Opioid Therapy greater than 6 weeks: Y Opiate Contract Signed: 11/25/05 9. Risk Assessment Tool Provided: LOW 0 10. Functional Assessment Tool: 11. Recreational Drug Use: Never Drug Type: Tobacco Use: Former Smoker Tobacco Type: Amount or Packs/day: How Many Years: Alcohol Use: Yes Frequency: Monthly Quant: 1
== END ==
LOC: PAIN 08:02
PROVIDERS: ATTEND Clinical Nurse Specialist Adult Health
DX: G89.29 Other chronic pain (principal); G58.8 Other specified mononeuropathies; M79.672 Pain in left foot; M79.671 Pain in right foot; Z88.1 Allergy status to other antibiotic agents; Z88.8 Allergy status to other drugs, medicaments and biological substances; Z79.899 Other long term (current) drug therapy

== ENCOUNTER → 2021-04-06 | Outpatient (CLI) | payer OTHER, MEDICARE ==
[~2021-04-06] VITALS: Ht 167.6 cm; Wt 70.6 kg
[~2021-04-06] MED LIST changes: +NORTRIPTYLINE H50 MG PO
[2021-04-06 12:51] VITALS: BP 113/61
--- NOTE | 2021-04-06 13:12 | NUR ---
Pain Clinic Assessment: 1. History of Osteoarthritis: KNEE HIPS History of Rheumatoid Arthritis: Not Applicable 2. Height: 5 ft. 6 in. 167.6 cm. Weight: 155.6 lb. oz. 70.580 kg. Patient's BMI: 25.1 3. Vital Signs: BP: 113/61 Pulse: 73 Resp: 14 Temp: 02 Sat: 100 ECG Mon: 4. Pain Intensity: 2 5. Fall Risk: Dizziness: N Needs help standing or walking: N Fallen in the last 3 months: N Fall risk comments: PT FELL 3 MONTHS AGO IN THE BACK HALLWAY BY OR. HER TOE STUCK ON THE FLOOR ACCORDING TO THE PT; DENIES INJURY 6. Patient on Blood Thinner: None 7. History of Hypertension: Y 8. Opioid Therapy greater than 6 weeks: Y Opiate Contract Signed: 11/25/05 9. Risk Assessment Tool Provided: LOW 0 10. Functional Assessment Tool: 11. Recreational Drug Use: Never Drug Type: Tobacco Use: Former Smoker Tobacco Type: Amount or Packs/day: How Many Years: Alcohol Use: Yes Frequency: Monthly Quant: 2-3 a month
== END ==
LOC: PAIN 10:02
PROVIDERS: ATTEND Clinical Nurse Specialist Adult Health
DX: G89.29 Other chronic pain (principal); M79.672 Pain in left foot; M79.671 Pain in right foot; G58.8 Other specified mononeuropathies; Z88.8 Allergy status to other drugs, medicaments and biological substances; Z79.82 Long term (current) use of aspirin; Z79.899 Other long term (current) drug therapy

== ENCOUNTER → 2021-04-16 | Outpatient (CLI) | payer OTHER, MEDICARE | LOC: SJCVCIMAG 09:54 | PROVIDERS: ATTEND Internal Medicine Cardiovascular Disease | DX: I35.1 Nonrheumatic aortic (valve) insufficiency (principal); I25.10 Atherosclerotic heart disease of native coronary artery without angina pectoris; J45.909 Unspecified asthma, uncomplicated; G47.33 Obstructive sleep apnea (adult) (pediatric); E78.5 Hyperlipidemia, unspecified ==

== ENCOUNTER → 2021-07-13 | Outpatient (CLI) | payer OTHER, MEDICARE ==
[~2021-07-13] VITALS: Ht 167.6 cm; Wt 68.1 kg
[2021-07-13 09:34] VITALS: BP 110/70
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
== END ==
LOC: PAIN 07:50
PROVIDERS: ATTEND Clinical Nurse Specialist Adult Health
DX: M79.671 Pain in right foot (principal); M79.672 Pain in left foot; Z79.899 Other long term (current) drug therapy; M79.2 Neuralgia and neuritis, unspecified; Z88.8 Allergy status to other drugs, medicaments and biological substances